=== PATIENT | female | born 1935 | race Caucasian/White ===

== ENCOUNTER 2023-02-13 15:46 | Outpatient (CLI) | payer MEDICARE, SELFPAY ==
--- OUTSIDE RECORDS SUMMARY | 2023-02-13 15:52 | XMS_ITS | Continuity of Care Document ---
Author Name Unknown Organization [facility] Address [address] [address] [place] [address] Phone Care Team Providers Care Media Monitor Name Role Phone Link Cisco WHEATLEY Unavailable Unavailable Allergies, Adverse Reactions, Alerts Substance Reaction Status Criticality trimethoprim Active No Information sulfamethoxazole Active No Informat ion codeine nausea / vomit / hives Active No In formation Medications Medication Instructions Dosage Effective Dates (start - stop) Status Comments losartan 25 mg tablet take 1 tablet by o ral route in the morning and 2 tablets in the evening - Active Norvasc 5 mg tablet take 1 tablet by ora l route every day 5 MG - Active carvedilol 25 mg tablet take 1 tablet by oral route 2 times every day with food 25 MG - Active Crestor 20 mg tablet take 1 tablet by or al route every day 20 MG - Active omeprazole 20 mg capsule,delayed release take 1 capsule (20MG) by oral route 2 times every day before a meal 20 MG - Active Procedures Procedure Date Offic/outpt E&m Estab Low-mod 9 Offic/outpt E&m Estab Mod-hi 2 19 Routine Serum Collection Hepatic Function Panel Colonoscopy Flex; W/remov Les- 17 Ugi Endo; W/bx 1/mx Level Iv-surg Path Gross/micro 17 Ugi Endo; W/endo Ultrasound Ex 14 Offic/outpt E&m Estab Mod-hi 2 11 [id number] Colonoscopy Flex; W/remov Les- 11 Level Iv-surg Path Gross/micro 11 Advance Directives Directive Yes / No Effective Date File Name No Information Encounters Encounter Description Practice Location Reason(s) For Visit Diagnoses Date Provider Providers Copied on Encounter Offic/outpt E&m Estab Low-mod [facility], [address] [address], [place], [id number], [place] tel:[phone] [facility] GI Symptoms or Concerns (chief complaint) RUQ painConstipation , unspecified constipation typeEssential (primary) hypertension 9 Link MD Peck. [address] [facility], [facility] [address], [facility] [place], [id number] , [place]. [phone] Referring Provider: Referral Self. [facility], [address] [address], [place], [address], [place] tel:[phone] [facility] RUQ pain 9 Link MD Peck. [address] [facility], [address], [facility] [place], [address] , [place]. tel:[phone] Offic/outpt E&m Estab Mod-hi 2 [facility], [address] [address], [place], [place], [address], [place] tel:[phone] [facility] GI Symptoms or Concerns (chief complaint) RUQ painConstipation , unspecified constipation typeEssential (primary) hypertension 9 Link MD Peck. [address] [facility], [address], [facility] [place], [id number] , [place]. [phone] Referring Provider: [place], [address] [place], [address]. tel:[phone] [facility], [address] [address], [place], [place], [address], [place] tel:[phone] [facility] Reflux esophagitisGastr itis determined by endoscopyHiatal herniaColorectal polyp detected on colonoscopyBenig n neoplasm of sigmoid colonChange in bowel habitGastro-esop hageal reflux disease with esophagitisGastr itis, unspecified, without bleeding Sep-0 7 Gina Delgado. [address] [facility], [address], [place], [place], [address] , [place]. tel: [phone] Referring Provider: Tammy RENNER M, [address] [place], [address]. [phone] [facility], [address] [address], [place], [place], [address], [place] tel:[phone] [facility] No Information 4 Ata Mann [address] [facility], [address], [place], [address] , [place]. tel: [phone] [facility], [address] [address], [place], [place], [address], [place] tel:[phone] [facility] No Information 4 Ata Mann [address] [facility], [address], [place], [place], [address] , [place]. tel: [phone] Offic/outpt E&m Estab Mod-hi 2 [facility], [address] [address], [place], [place], [address], [place] tel:[phone] [facility] colonoscopy follow up (chief complaint) Gastroesophageal RefluxConstipati on Unspecified Mar- 1 Wilberto Peck. [address] [facility], [address], [place], [place], [address] , [place]. tel: [phone] [facility], [address] [address], [place], [place], [address], [place] tel:[phone] [facility] Polyp-intes/rect /stom-unc BehPseudopolypos is Of ColonChange In Bowel HabitsPseudopoly posis Of ColonChange In Bowel Habits 1 Wilberto Peck. [address] [facility], [address], [place], [place], [address] , [place]. tel:[phone] Family History Family Member Type Diagnosis Age At Onset Sister Problem (finding) Alive and well First degree family history Problem (finding) No Family history of No history of Colon Polyps Son Problem (finding) Alive and well First degree family history Problem (finding) No history of Ulcerative Colitis Daughter Problem (finding) Alive and well First degree family history Problem (finding) No history of Crohn's Brother Problem (finding) First degree family history Problem (finding) No history of Cancer, colon Mother Problem (finding) Father Problem (finding) Payers Payer name Insurance type Covered alliance party ID Montserrat bledsoe(s) [employer] Medicare 16 [id number] Social History Type Description Quantity Date Captured Comments Alcohol Use Details Caffeine Use Details Unknown Tobacco Use Status Current non-smoker 19 Smoking Status Never smoker Non-Smoking Tobacco Use Details : No Details Available : No Details Available Sex Female Vital Signs Date / Time: Height Weight BMI Pulse Rate Blood Pressure Temperature Respiratory Rate Body Surface Area Head Circumference Head Circ. Percentile Wt./Jaya. Percentile BMI percentile Pulse Ox Inhaled Ox 9:44 AM 62.00 in 57.697 kg (127.20 lbs) 23.2 6 kg/m eter (2) 58 /min 180/81 mm[Hg] Chief Complaint And Reason For Visit From encounter dated '01/26/2019 10:00'. GI Symptoms or Concerns (chief complaint). Description: She presents today for followup of her right upper quadrant pain and constipation. At her last visit, there had been concern about possible bile duct dilation. We checked LFTs, which were completely normal. She then underwent a pancreatic protocol CT of the abdomen and pelvis, which showed no acute abnormality, and no biliary dilation. Her pancreas was normal. At her last visit, I had also recommended that she start taking MiraLax on a regular basis to help with her constipation.She states that she has had significant improvement in her right upper quadrant pain. She notes that this has nearly resolved. She does now have some right-sided chest pain. She feels that the right upper quadrant pain has moved to her right chest. She statesit is nearly constant, and definitely worse with eating at times. She denies any nausea, vomiting, decreased appetite, diarrhea, or blood in her stools. Her daughter notes that she eats only small amounts at a time, however, states that her weight is stable.With regards to her constipation, she hashad improvement with the MiraLax, however, notes that if she takes one full dose every day, she canhave loose stools and has had some episodes of incontinence. Reason For Referral Reason For Referral No Information Plan Of Treatment Date Type Action Status Referral Ordered: CT Abdomen And Pelvis WITH Contrast Appointment date/timeframe: 12/16/2018 ordered History Of Present Illness Encounter Date Complaint History Of Prese nt Illness GI Symptoms or Concerns She pres ents today for followup of her right upper quadrant pain and constipation. At her last visit, there had been concern about possible bile duct dilation. We checked LFTs, which were completely normal. She then underwent a pancreatic protocol CT of the abdomen and pelvis, which showed no acute abnormality, and no biliary dilation. Her pancreas was normal. At her last visit, I had also recommended that she start taking MiraLax on a regular basis to help with her constipation.She states that she has had significant improvement in her right upper quadrant pain. She notes that this has nearly resolved. She does now have some right-sided chest pain. She feels that the right upper quadrant pain has moved to her right chest. She states it is nearly constant, and definitely worse with eating at times. She denies any nausea, vomiting, decreased appetite, diarrhea, or blood in her stools. Her daughter notes that she eats only small amounts at a time, however, states that her w GI Symptoms or Concerns I was as ked to see Nehal by Dr. Samantha Willson for consultation of a dilated bile duct.Nehal reports a constant right upper quadrant pain. She states that this pain has been present for years. She notes that it is worse at night. It does not change with eating a meal, although sometimes it can be worse if she eats chocolate, or certain drinks such as Powerade. She has some nausea, which she feels is unrelated to the pain. She denies any vomiting. She does take omeprazole for acid reflux. Currently, she generally only has symptoms if she bends over, especially after eating a meal. She feels her appetite is normal, although her daughter feels that her appetite is poor. Her weight is stable. She has no history of jaundice. She does have some difficulty with constipation. She generally has a bowel movement 2 to 3 times per week. Currently, she takes MiraLax on an as-needed basis, generally 2 to 3 times per week. She denies any hard stools or straining to pass stools.I Functional Status Date Functional Assessmen t No Information Instructions Date Instruction Additional Infor sean Continue the miralax , I would decrease to 1/2 capful every day. OK to decrease to 1/2 capful every other day if needed. Related to Constipation, unspecified constipation type Continue omeprazole 20 mg twice per day for now. If you have questions or symptoms worsen, please call my office. We can consider changing to a different medication such as pantoprazole (Protonix). Related to RUQ pain Start Miralax one do se (17 grams) every day. Goal is to have a soft, formed bowel movement every day or every other day. If not at goal in 2 weeks, increase to one dose twice per day. Related to Constipation, unspecified constipation type Gastroesophageal Reflux Disease Related to Gastritis determined by endoscopy Gastritis Related to Gastr itis determined by endoscopy Colon Cancer Prevention Related to Gastritis determined by endoscopy Hiatal Hernia Related to Gastr itis determined by endoscopy Colon Polyps Related to Gastr itis determined by endoscopy Assessments Type Assessment Date assessment RUQ pain assessment Constipation, unspecified consti pation type assessment Essential (primary) hypertension impression This is a pleasant [age]-year-old with right upper quadrant pain and constipation. Both of these are chronic issues, and she does not have any warning symptoms.Regarding her right upper quadrant pain, she is very reassured that her liver tests and CT scan were normal. She does have a history of esophagitis and hiatal hernia, and we did discuss if she would benefit from changing to an alternative PPI. We had an extensive discussion, and also considered adding and changing to ranitidine. After this discussion, she would prefer to stay on the omeprazole as currently dosed.With regards to her constipation, I recommend that she try taking the MiraLax 1/2 dose per day. I explained that if she still has loose stools on this dosage, she can decrease to 1/2 dose every other day.I encouraged her to contact my office immediately if she has any other problems or questions, otherwise she can follow up with Dr. Willson.Thank you for allowing me to participate in the care of this patient. Please feel free to contact me should any questions arise. Patient Care Teams Name Effective Dates (start - stop) Status Members No Information
== END 2023-02-13 15:47 | disposition home or self-care (01) ==
PROVIDERS: PCP Family Medicine; Visit Provider Family Medicine
DX: Z00.00 Encounter for general adult medical examination without abnormal findings (principal); E04.1 Nontoxic single thyroid nodule; I10 Essential (primary) hypertension; E78.5 Hyperlipidemia, unspecified; E55.9 Vitamin D deficiency, unspecified; R53.83 Other fatigue
CPT/HCPCS: 80053; 80061; 82306; 84443

== ENCOUNTER 2023-04-09 09:00 | Outpatient (CLI) | payer MEDICARE, SELFPAY | END 2023-04-09 09:01 | disposition home or self-care (01) | LOC: NFLDREF 04-11 11:52 | PROVIDERS: PCP Family Medicine; Referring Provider Family Medicine; Visit Provider Family Medicine | DX: E78.5 Hyperlipidemia, unspecified (principal); I10 Essential (primary) hypertension | CPT/HCPCS: 80053; 80061 ==

== ENCOUNTER 2023-06-27 11:02 | Outpatient (CLI) | payer MEDICARE, SELFPAY ==
--- OUTSIDE RECORDS SUMMARY | 2023-06-28 11:20 | XMS_ITS | Continuity of Care Document ---
Author Name Unknown Organization [facility] Address [address] [address] [place] [address] Phone Care Team Providers Care Steel Pourer Helper Name Role Phone Link Cisco WHEATLEY Unavailable [...] Copied on Encounter Offic/outpt E&m Estab Low-mod [facility], [address] [address], [place], [place], [address], [place] tel:[phone] [facility] GI Symptoms or Concerns (chief complaint) RUQ painConstipation , unspecified constipation typeEssential (primary) hypertension 9 Link MD Peck. [address] [facility], [facility] [place], [place], [address] , [place]. [phone] Referring Provider: Referral Self, USE FOR SELF REFERRALS. [facility], [address] [address], [facility] [place], [address], [place] tel:[phone] [facility] RUQ pain 9 Link MD Peck. [address] [facility], [facility] [place], [place], [address] , [place]. tel:[phone] Offic/outpt E&m Estab Mod-hi 2 [facility], [address] [address], [place], [place], [address], [place] tel:[phone] [facility] GI Symptoms or Concerns (chief complaint) RUQ painConstipation , unspecified constipation typeEssential (primary) hypertension 9 Link MD Peck. [address] [facility], [address], [facility] [place], [address] , [place]. [phone] Ref[place]: [place], [address] [place], [address]. tel:[phone] [facility], [address] [address], [place], [place], [address], [place] tel:[phone] [facility] Reflux esophagitisGastr itis determined by endoscopyHiatal herniaColorectal polyp detected on colonoscopyBenig n neoplasm of sigmoid colonChange in bowel habitGastro-esop hageal reflux disease with esophagitisGastr itis, unspecified, without bleeding 7 Gina Delgado. [address] [facility], [address], [place], [place], [address] , [place]. tel: [phone] Referring Provider: Tammy RENNER M, [address] [place], [address]. tel:[phone] [facility], [address] [address], [place], [address], [place] tel:[phone] [facility] No Information 4 Ata Mann [address] [facility], [facility] [address], [place], [place], [address] , [place]. tel: [phone] [facility], [address] [address], [place], [place], [address], [place] tel:[phone] [facility] No Information 4 Ata Mann [address] [facility], [facility] [address], [place], [place], [address] , [place]. tel: [phone] Offic/outpt E&m Estab Mod-hi 2 [facility], [address] [address], [place], [place], [address], [place] tel:[phone] [facility] colonoscopy follow up (chief complaint) Gastroesophageal RefluxConstipati on Unspecified 1 Wilberto Peck. [address] [facility], [facility] [address], [place], [place], [address] , [place]. tel: [phone] [facility], [address] [address], [place], [address], [place] tel:[phone] [facility] Polyp-intes/rect /stom-unc BehPseudopolypos is Of ColonChange In Bowel HabitsPseudopoly posis Of ColonChange In Bowel Habits 1 Link MD Peck. [address] [facility], [facility] [address], [place], [place], [address] , . tel:[phone] Family History Family Member Type Diagnosis Age [...] (finding) Payers Payer name Insurance type Covered green party ID Montserrat bledsoe(s) [employer] Medicare 16 [id number] Social History Type Description Quantity Date Captured [...] Present Illness Encounter Date Complaint History Of Preslogan nt Illness GI Symptoms or Concerns She [...]
== END 2023-06-27 11:03 | disposition home or self-care (01) ==
LOC: NFLDREF 06-28 11:18
PROVIDERS: PCP Family Medicine; Referring Provider Family Medicine; Visit Provider Physician Assistant Medical
DX: R35.0 Frequency of micturition (principal); N39.0 Urinary tract infection, site not specified
CPT/HCPCS: 87086

== ENCOUNTER 2023-07-22 12:04 | Emergency (ER) | payer MEDICARE, SELFPAY ==
[2023-07-22] VITALS (21 sets, daily range): BP systolic 95–198; BP diastolic 42–102; PULSE 54–68; RESP 16; TEMP 35.9; O2SAT 93–98
--- NOTE | 2023-07-22 12:13 | CRLHL7_ITS ---
For Patients: As a result of the Century Cures Act, medical imaging exams and procedure reports are released immediately into your electronic medical record. You may view this report before your referring provider. If you have questions, please contact your health care provider. INDICATION: Acute stroke, left-sided weakness. TECHNIQUE: CTA neck with contrast bolus tracking, 3D angiographic rendering using maximum intensity projection (MIP) and images permanently archived. FINDINGS: There is carotid atherosclerosis. There is marked tortuosity and redundancy of the internal carotid arteries. There is no significant carotid artery stenosis or dissection. There is no significant vertebral artery stenosis or dissection. Small indeterminate thyroid nodules are incidentally noted. The soft tissues of the neck are otherwise within normal limits. Degenerative changes are noted in the cervical spine. IMPRESSION: No significant carotid or vertebral artery stenosis or dissection. Please note that all CT scans at this facility use dose modulation, iterative reconstruction, and/or weight-based dosing when appropriate to reduce radiation dose to as low as reasonably achievable. Dictated by Richard Colin MD @ 07/22/2023 1:49:39 PM (Electronically Signed)
--- NOTE | 2023-07-22 12:13 | CRLHL7_ITS ---
For Patients: As a result of the Century Cures Act, medical imaging exams and procedure reports are released immediately into your electronic medical record. You may view this report before your referring provider. If you have questions, please contact your health care provider. INDICATION: Acute stroke, left-sided weakness. TECHNIQUE: CT head without contrast. FINDINGS: There is no intracranial hemorrhage. The brown white matter differentiation is maintained. There are extensive nonspecific white matter hypodensities commonly seen with small vessel disease. The ventricles and cisterns are clear. IMPRESSION: No acute intracranial abnormality at noncontrast CT. Please note that all CT scans at this facility use dose modulation, iterative reconstruction, and/or weight-based dosing when appropriate to reduce radiation dose to as low as reasonably achievable. Dictated by Richard Colin MD @ 07/22/2023 1:35:43 PM (Electronically Signed)
--- NOTE | 2023-07-22 12:13 | CRLHL7_ITS ---
For Patients: As a result of the Century Cures Act, medical imaging exams and procedure reports are released immediately into your electronic medical record. You may view this report before your referring provider. If you have questions, please contact your health care provider. INDICATION: Acute stroke, left-sided weakness. TECHNIQUE: CTA head with contrast bolus tracking, 3D angiographic rendering using maximum intensity projection (MIP) and images permanently archived. FINDINGS: There is a 12 mm cavernous left ICA aneurysm. 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 There is otherwise normal opacification of the intracranial vasculature. There is no large vessel occlusion or significant intracranial stenosis. IMPRESSION: 1. No large vessel occlusion. 2. 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 We would be happy to manage the patient`s aneurysms at the [facility] neurointerventional clinic if desired. This can be arranged by calling our coordinator at [phone]. Discussed with Juan Fletcher at 1:45 p.m. on 07/22/23. Richard Colin MD Neurointerventional Radiology [facility] [employer] Please note that all CT scans at this facility use dose modulation, iterative reconstruction, and/or weight-based dosing when appropriate to reduce radiation dose to as low as reasonably achievable. Dictated by Richard Colin MD @ 07/22/2023 1:48:28 PM (Electronically Signed)
[2023-07-22 12:43] LABS: Creatinine, Point-of-Care* 0.8 mg/dl (0.6-1.3)
[2023-07-22 12:50] LABS: Basophils Absolute Auto 0.05 K/uL (0.00-0.30); Basophils Percent Auto 0.6 % (0.0-3.0); Eosinophils Absolute Auto 0.12 K/uL (0.00-0.50); Eosinophils Percent Auto 1.5 % (0.0-7.0); Hemoglobin* 15.2 gm/dL (12.0-16.0); Immature Granulocytes Abs Auto 0.01 K/uL (0.00-0.30); Immature Granulocytes Pct Auto 0.1 %; Lymphocytes Absolute Auto 2.05 K/uL (0.90-2.90); Lymphocytes Percent Auto 25.8 % (20-44); Mean Corpuscular HGB Conc 35 gm/dL (32-36); Mean Corpuscular Hemoglobin 33 pg (26-34); Mean Corpuscular Volume 94 fL (80-100); Monocytes Percent Auto 10.1 % (0.0-11.0); Neutrophils Absolute Auto 4.92 K/uL (1.7-7.0); Neutrophils Percent Auto 61.9 % (42.0-72.0); Platelet Count* 236 K/uL (140-440); RDW Coefficient of Variation % 12.2 % (11.5-15.5); Red Blood Count 4.67 m/uL (4.00-5.20); White Blood Count* 7.95 K/uL (4.50-11.00)
--- NOTE | 2023-07-22 12:50 | ED.NURSE ---
Patient to CT.
[2023-07-22 13:03] LABS: Creatinine, Point-of-Care* 0.8 mg/dl (0.6-1.3)
[2023-07-22 13:04] LABS: Albumin* 4.2 g/dL (3.3-5.0); Chloride* 102 mmol/L (96-114)
[2023-07-22 13:05] LABS: Potassium* 3.3 mmol/L (3.6-5.1); Sodium* 141 mmol/L (135-149)
[2023-07-22 13:06] LABS: Slide Review Reflex No
[2023-07-22 13:07] LABS: Anion Gap 6 mEq/L (7-15); Aspartate Amino Transferase* 26 U/L (12-35); Bilirubin Total* 0.8 mg/dL (0.1-1.5); Blood Urea Nitrogen* 26 mg/dL (7-30); Carbon Dioxide* 33 mmol/L (20-32); Creatinine* 0.7 mg/dL (0.5-1.5); Estimated Glomerular Filt Rate 84 ml/min; Total Protein* 7.3 g/dL (6.0-8.3)
[2023-07-22 13:08] LABS: Alanine Aminotransferase* 17 U/L (4-35); Alkaline Phosphatase* 66 U/L (40-150); Calcium* 10.1 mg/dL (8.4-10.6); Glucose* 110 mg/dL (60-115)
--- NOTE | 2023-07-22 13:11 | ED.NEUROSD ---
HPI - Neuro Symptoms/Deficit General Date Seen: 07/22/23 Chief Complaint: Neuro Symptoms/Altered Deficit Stated Complaint: Possible stroke--L side numb/heavy Time Seen by Provider: 07/22/23 12:09 Source: patient and family Mode of arrival: ambulatory Limitations: no limitations History of Present Illness HPI Narrative: Patient is an 87-year-old female with a previous stroke with no residual deficits, cerebral aneurysm presenting to the emergency department for dizziness and left-sided weakness. She is here with her daughter. They states symptoms have been going on for the past 5 days. They are concerned symptoms are not improving so finally brought drink today. She has never had symptoms like this before they concerned she could have suffered a stroke. Patient states she feels like she is falling to the left side at end of her left side of her body is weak. Symptoms are not any worse today compared to yesterday. Does not remember any injuries or falls. Family states she is otherwise mentating normally. Related Data Home Medications Medication Instructions Recorded Confirmed ascorbic acid (vitamin C) 500 mg mg PO 02/13/23 06/27/23 capsule cholecalciferol (vitamin D3) 25 25 mcg PO QDAY 02/13/23 07/22/23 mcg (1,000 unit) capsule Previous Rx's Medication Instructions Recorded estradiol 0.01% (0.1 mg/gram) 1 appful vaginal 2XW #42.5 grams 02/13/23 vaginal cream famotidine 20 mg tablet 20 mg PO QDAY #90 tabs 02/13/23 amlodipine 5 mg tablet 5 mg PO BID #180 tabs 04/15/23 carvedilol 25 mg tablet 25 mg PO BID #180 tabs 04/15/23 losartan 25 mg tablet 25 mg PO BID #180 tabs 04/15/23 rosuvastatin 20 mg tablet 20 mg PO QPM #90 tabs 04/15/23 nitrofurantoin macrocrystal 100 mg 100 mg PO BID #14 caps 06/27/23 capsule Allergies Allergy/AdvReac Type Severity Reaction Status Date / Time codeine Allergy Unknown Rash Verified 06/27/23 11:03 sulfamethoxazole Allergy Unknown Jaw Verified 06/27/23 11:03 [From Bactrim] Tightens trimethoprim [From Bactrim] Allergy Unknown Jaw Verified 06/27/23 11:03 Tightens 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) ?I70.1 - Atherosclerosis of renal artery (ICD-10) ?I77.3 - Arterial fibromuscular dysplasia (ICD-10) Frequent UTI ?N39.0 - Urinary tract infection, site not specified (ICD-10) GERD (gastroesophageal reflux disease) ?K21.9 - Gastro-esophageal reflux disease without esophagitis (ICD-10) Thyroid nodule (2014) ?E04.1 - Nontoxic single thyroid nodule (ICD-10) Hypertension ?I10 - Essential (primary) hypertension (ICD-10) Hyperlipidemia ?E78.5 - Hyperlipidemia, unspecified (ICD-10) Cerebral aneurysm, nonruptured (2014) ?I67.1 - Cerebral aneurysm, nonruptured (ICD-10) Bilateral carotid artery disease (~2013) ?I77.9 - Disorder of arteries and arterioles, unspecified (ICD-10) Surgical History (Updated 02/13/23 @ 17:19 by Lia Kenny MD) Normal endoscopic ultrasound of upper GI tract (08/26/13) ?Z01.89 - Encounter for other specified special examinations (ICD-10) History of bilateral cataract extraction ?Z98.41 - Cataract extraction status, right eye (ICD-10) ?Z98.42 - Cataract extraction status, left eye (ICD-10) History of hysterectomy (~1970) ?Z90.710 - Acquired absence of both cervix and uterus (ICD-10) History of spinal surgery (1997) ?Z98.890 - Other specified postprocedural states (ICD-10) Status post renal artery angioplasty (2002) ?Z98.62 - Peripheral vascular angioplasty status (ICD-10) Family History (Updated 02/13/23 @ 17:20 by Lia Kenny MD) Mother Diabetes, Onset Age: 65 Coronary artery disease Brother No problems noted. Sister Diabetes Son Cerebrovascular disease Social History (Updated 04/16/23 @ 14:00 by Vandana Power ~ CTA) Narrative: , lives alone, 2 adult children Lifetime nonsmoker Rarely consumes alcohol Physical activity daily gardening housecleaning walking Call all lab results to daughter Kenya What is your current living situation?: I presently have a place to live Problems where you live: no known problems In the past 12 months, utilities in danger of being shut off: no In past 12 months, lack of transportation kept you from medical appts, meetings, work, or getting things needed for daily living: no In the past 12 mos, have been you worried that your food would run out before you had money to buy more?: never true In the past 12 mos, the food you bought just didn't last and you didn't have money to buy more?: never true Non-prescribed substance use: denies use How often does anyone, including family, friends and others, physically hurt you: never How often does anyone, including family, friends and others, insult or talk down to you: rarely How often does anyone, including family, friends and others, threaten you with harm: never How often does anyone, including family, friends and others, scream or curse at you: never Little interest or pleasure in doing things: not at all Feeling down, depressed, or hopeless: not at all Exam Const: Vital Signs, click to edit/add: Vital Signs - 24 hr 07/22/23 12:09 07/22/23 12:45 07/22/23 13:08 Temperature 96.6 F L Pulse Rate 55 L 63 Pulse Rate [Pulse Oximeter] 54 L Respiratory Rate 16 Blood Pressure Blood Pressure [Le ft Upper Arm] 196/94 H Pulse Oximetry 97 97 98 [facility] 07/22/23 13:15 07/22/23 13:23 07/22/23 13:30 Temperature Pulse Rate 61 65 64 Pulse Rate [Pulse Oximeter] Respiratory Rate Blood Pressure 198/101 H Blood Pressure [Le ft Upper Arm] Pulse Oximetry 97 98 97 [facility] 07/22/23 13:45 07/22/23 14:00 07/22/23 14:15 Temperature Pulse Rate 63 64 63 Pulse Rate [Pulse Oximeter] Respiratory Rate Blood Pressure Blood Pressure [Le ft Upper Arm] Pulse Oximetry 95 97 97 [facility] 07/22/23 14:30 07/22/23 15:00 07/22/23 15:01 Temperature Pulse Rate 65 66 66 Pulse Rate [Pulse Oximeter] Respiratory Rate Blood Pressure 194/102 H Blood Pressure [Le ft Upper Arm] Pulse Oximetry 93 97 94 Oxygen Delivery Me thod 07/22/23 15:15 07/22/23 15:30 07/22/23 15:45 Temperature Pulse Rate 63 63 63 Pulse Rate [Pulse Oximeter] Respiratory Rate Blood Pressure Blood Pressure [Le ft Upper Arm] Pulse Oximetry 96 97 96 Oxygen Delivery Me thod 07/22/23 16:00 07/22/23 16:15 07/22/23 16:30 Temperature Pulse Rate 61 62 62 Pulse Rate [Pulse Oximeter] Respiratory Rate Blood Pressure Blood Pressure [Le ft Upper Arm] Pulse Oximetry 96 96 96 Oxygen Delivery Me thod 07/22/23 16:45 07/22/23 16:47 07/22/23 17:03 Temperature Pulse Rate 68 65 Pulse Rate [Pulse Oximeter] Respiratory Rate Blood Pressure 190/102 H 95/42 L Blood Pressure [Le ft Upper Arm] Pulse Oximetry 97 96 Oxygen Delivery Me thod Course Vital Signs Vital signs: Initial Vital Signs Temperature 96.6 F L 07/22/23 12:09 Temperature Source Temporal Artery Scan 07/22/23 12:09 Pulse Rate 54 L 07/22/23 12:09 Respiratory Rate 16 07/22/23 12:09 Blood Pressure 196/94 H 07/22/23 12:09 Blood Pressure Mean 128 H 07/22/23 12:09 Blood Pressure Position Supine 07/22/23 12:09 Pulse Oximetry 97 07/22/23 12:09 Oxygen Delivery Method Room Air 07/22/23 12:09 Vital Signs Temperature 96.6 F L 07/22/23 12:09 Pulse Rate 54 L 07/22/23 12:09 Respiratory Rate 16 07/22/23 12:09 Blood Pressure 196/94 H 07/22/23 12:09 Pulse Oximetry 97 07/22/23 12:09 Oxygen Delivery Method Room Air 07/22/23 12:09 Temperature 96.6 F L 07/22/23 12:09 Pulse Rate 65 07/22/23 16:47 Respiratory Rate 16 07/22/23 12:09 Blood Pressure 95/42 L 07/22/23 17:03 Pulse Oximetry 96 07/22/23 16:47 Oxygen Delivery Method Room Air 07/22/23 12:09 Medications Administered Medications: Discontinued Medications Generic Name Dose Route Start Last Admin Trade Name Freq PRN Reason Stop Dose Admin Amlodipine Besylate 5 mg 07/22/23 15:54 07/22/23 16:56 Amlodipine 5 Mg Tablet PO 07/22/23 15:55 5 mg ONCE ONE Administration Aspirin 324 mg 07/22/23 14:18 07/22/23 16:56 Aspirin 81 Mg Tab.Chew PO 07/22/23 14:19 324 mg ONCE ONE Administration Losartan Potassium 25 mg 07/22/23 15:54 07/22/23 16:56 Losartan Potassium 50 Mg Tablet PO 07/22/23 15:55 25 mg ONCE ONE Administration Meclizine HCl 25 mg 07/22/23 16:09 07/22/23 16:56 Meclizine Hcl 25 Mg Tablet PO 07/22/23 16:10 25 mg ONCE ONE Administration MDM - Neuro Symptoms/Deficit MDM Narrative Medical decision making narrative: Patient is an 87-year-old female presenting to emergency department for left-sided weakness. She keeps stating she feels like something is her head is pulling her to the left side. She is not ambulatory as previously. NIH stroke scale is 0. Symptoms have been going on for several days and a code stroke is not necessary at this time. Will do a CT head and CTA head and neck. Point of care creatinine was ordered to be done after wait for the CMP to return to get these tests done. Also order urinalysis, COVID/flu/RSV, troponin, EKG, CBC peer Head imaging returned showing no concerning abnormalities. I did speak to Neurointerventional Radiology about the patient's aneurysms and I was informed to have her follow up with them outpatient. This information was given to her and her daughter. I spoke to [facility] and was recommended to do an MRI. This MRI was done insert no new concerning abnormalities. Patient is still symptomatic. I spoke to Neurology again a recommended admission since we do not know what is causing the symptoms. Patient and family do not want to be admitted . Would be rather go home. I spoke to them about admission versus discharge him the risks and they still state they would rather go home. CBC and CMP showed no concerning findings troponin within normal limits EKG showed no concerning findings. She is hypertensive I gave her her home hypertension medications. Her symptoms do not sound like vertigo at this point I do not know what else is causing her symptoms so meclizine was given. They did not want await for the meclizine to fully kick in and wants to be discharged. This is fine considering the patient refused to stay anyway so the patient was discharged. Lab Data Labs: Lab Results 07/22/23 07/22/23 07/22/23 Range/Units 12:13 12:35 12:35 WBC 7.95 (4.50-11.00) K/uL RBC 4.67 (4.00-5.20) m/uL Hgb 15.2 (12.0-16.0) gm/dL Hct 44.0 (33.0-51.0) % MCV 94 (80-100) fL MCH 33 (26-34) pg MCHC 35 (32-36) gm/dL RDW Coeff of Natalie 12.2 (11.5-15.5) % Plt Count 236 (140-440) K/uL Neut % (Auto) 61.9 (42.0-72.0) % Lymph % (Auto) 25.8 (20-44) % [place] % (Auto) 10.1 (0.0-11.0) % Eos % (Auto) 1.5 (0.0-7.0) % Baso % (Auto) 0.6 (0.0-3.0) % Neut # (Auto) 4.92 (1.7-7.0) K/uL Lymph # (Auto) 2.05 (0.90-2.90) K/uL [place] # (Auto) 0.80 (0.00-0.90) K/UL Eos # (Auto) 0.12 (0.00-0.50) K/uL Baso # (Auto) 0.05 (0.00-0.30) K/uL Abs Immat Gran (auto) 0.01 (0.00-0.30) K/uL Imm/Tot Granulo (auto) 0.1 % Sodium 141 (135-149) mmol/L Potassium 3.3 L (3.6-5.1) mmol/L Chloride 102 (96-114) mmol/L Carbon Dioxide 33 H (20-32) mmol/L Anion Gap 6 L (7-15) mEq/L BUN 26 (7-30) mg/dL Creatinine 0.7 (0.5-1.5) mg/dL Estimated GFR 84 ml/min Glucose 110 (60-115) mg/dL Calcium 10.1 (8.4-10.6) mg/dL Total Bilirubin 0.8 (0.1-1.5) mg/dL AST 26 (12-35) U/L ALT 17 (4-35) U/L Alkaline Phosphatase 66 (40-150) U/L Troponin I < 0.01 L (0.01-0.04) ng/mL Total Protein 7.3 (6.0-8.3) g/dL Albumin 4.2 (3.3-5.0) g/dL Urine Color (Yellow) Urine Appearance (Clear) Urine pH (5.0-8.5) Ur Specific [place] (1.000-1.030) Urine Protein (Negative) Urine Glucose (UA) (Negative) Urine Ketones (Negative) Urine Blood (Negative) Urine Nitrite (Negative) Urine Bilirubin (Negative) Urine Urobilinogen (0.2-1.0) Ur Leukocyte Esterase (Negative) Urine RBC (0-2) Urine WBC (0-5) Ur Squamous Epith Cells (None-Few) Urine Bacteria (None) SARS-CoV-2 (PCR) Negative SARS-CoV-2 (Negative) Influenza Type A (PCR) Negative PCR FLU A (Negative) Influenza Type B (PCR) Negative PCR FLU B (Negative) RSV (PCR) Negative PCR RSV (Negative) POC Creatinine 0.8 0.8 (0.6-1.3) mg/dl 07/22/23 Range/Units 15:38 WBC (4.50-11.00) K/uL RBC (4.00-5.20) m/uL Hgb (12.0-16.0) gm/dL Hct (33.0-51.0) % MCV (80-100) fL MCH (26-34) pg MCHC (32-36) gm/dL RDW Coeff of Natalie (11.5-15.5) % Plt Count (140-440) K/uL Neut % (Auto) (42.0-72.0) % Lymph % (Auto) (20-44) % [place] % (Auto) (0.0-11.0) % Eos % (Auto) (0.0-7.0) % Baso % (Auto) (0.0-3.0) % Neut # (Auto) (1.7-7.0) K/uL Lymph # (Auto) (0.90-2.90) K/uL [place] # (Auto) (0.00-0.90) K/UL Eos # (Auto) (0.00-0.50) K/uL Baso # (Auto) (0.00-0.30) K/uL Abs Immat Gran (auto) (0.00-0.30) K/uL Imm/Tot Granulo (auto) % Sodium (135-149) mmol/L Potassium (3.6-5.1) mmol/L Chloride (96-114) mmol/L Carbon Dioxide (20-32) mmol/L Anion Gap (7-15) mEq/L BUN (7-30) mg/dL Creatinine (0.5-1.5) mg/dL Estimated GFR ml/min Glucose (60-115) mg/dL Calcium (8.4-10.6) mg/dL Total Bilirubin (0.1-1.5) mg/dL AST (12-35) U/L ALT (4-35) U/L Alkaline Phosphatase (40-150) U/L Troponin I (0.01-0.04) ng/mL Total Protein (6.0-8.3) g/dL Albumin (3.3-5.0) g/dL Urine Color Yellow (Yellow) Urine Appearance Clear (Clear) Urine pH 7.5 (5.0-8.5) Ur Specific [place] 1.015 (1.000-1.030) Urine Protein Negative (Negative) Urine Glucose (UA) Negative (Negative) Urine Ketones Negative (Negative) Urine Blood Negative (Negative) Urine Nitrite Negative (Negative) Urine Bilirubin Negative (Negative) Urine Urobilinogen 0.2 (0.2-1.0) Ur Leukocyte Esterase Negative (Negative) Urine RBC 0-2 (0-2) Urine WBC 0-2 (0-5) Ur Squamous Epith Cells Few (None-Few) Urine Bacteria None (None) SARS-CoV-2 (PCR) (Negative) Influenza Type A (PCR) (Negative) Influenza Type B (PCR) (Negative) RSV (PCR) (Negative) POC Creatinine (0.6-1.3) mg/dl Imaging Data CT scan head: Radiologist's impression: No acute intracranial abnormality at noncontrast CT. Please note that all CT scans at this facility use dose modulation, iterative reconstruction, and/or weight-based dosing when appropriate to reduce radiation dose to as low as reasonably achievable. Dictated by Richard Colin MD @ 07/22/2023 1:35:43 PM CTA head and neck: Radiologist's impression: 1. No large vessel occlusion. 2. 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 We would be happy to manage the patient`s aneurysms at the [facility] neurointerventional clinic if desired. This can be arranged by calling our coordinator at [phone]. Discussed with Juan Fletcher at 1:45 p.m. on 07/22/23. Richard Colin MD Neurointerventional Radiology [facility] Please note that all CT scans at this facility use dose modulation, iterative reconstruction, and/or weight-based dosing when appropriate to reduce radiation dose to as low as reasonably achievable. Dictated by Richard Colin MD @ 07/22/2023 1:48:28 PM No significant carotid or vertebral artery stenosis or dissection. Please note that all CT scans at this facility use dose modulation, iterative reconstruction, and/or weight-based dosing when appropriate to reduce radiation dose to as low as reasonably achievable. Dictated by Richard Colin MD @ 07/22/2023 1:49:39 PM MRI brain: Radiologist's impression: 1. No evidence of acute intracranial abnormality. 2. Mild generalized cerebral volume loss, moderately advanced chronic microangiopathy changes, and scattered chronic lacunar infarcts as detailed. 3. Re-demonstration of the large left cavernous ICA saccular aneurysm. The previously described smaller ACOM aneurysm is better seen on CTA. Dictated by Gina Ford MD @ 07/22/2023 3:14:36 PM (Electronically Signed) ECG Data Attestation: I personally reviewed and interpreted this ECG as follows: Prior ECG tracings: not available for review Interpretation: Sinus bradycardia with a rate 55 beats per minute, normal intervals, normal axis, no ST or T-wave abnormalities Discharge Plan Discharge Clinical Impression: Dizziness Patient Disposition: Home w/ Parent or Adult Condition: Unchanged Instructions: Dizziness (ED) Additional Instructions: I am not sure what is causing symptoms of this. Is recommended you follow-up with Neuro Interventional for her aneurysms. Call to schedule an appointment Also recommend she follow up with [facility]. Call to schedule an appointment. Return to emergency department for new or worsening symptoms Prescriptions: No Action rosuvastatin 20 mg tablet 20 mg PO QPM Qty: 90 4RF losartan 25 mg tablet 25 mg PO BID Qty: 180 3RF carvedilol 25 mg tablet 25 mg PO BID Qty: 180 4RF amlodipine 5 mg tablet 5 mg PO BID Qty: 180 3RF cholecalciferol (vitamin D3) 25 mcg (1,000 unit) capsule 25 mcg PO QDAY ascorbic acid (vitamin C) 500 mg capsule PO estradiol 0.01 % (0.1 mg/gram) cream 1 appful vaginal 2XW Qty: 42.5 4RF famotidine 20 mg tablet 20 mg PO QDAY Qty: 90 4RF nitrofurantoin macrocrystal 100 mg capsule 100 mg PO BID Qty: 14 0RF Rx Instructions: must administer with a meal/food Follow Up/Referrals: Lia Kenny MD [Primary Care Provider] - Stand Alone Forms: [employer] Info Instructions
[2023-07-22 13:12] LABS: PCR FLU A Negative PCR FLU A (Negative); PCR FLU B Negative PCR FLU B (Negative); PCR RSV Negative PCR RSV (Negative)
[2023-07-22 13:15] LABS: SARS PCR* Negative SARS-CoV-2 (Negative)
[2023-07-22 13:21] LABS: Troponin I* < 0.01 ng/mL (0.01-0.04)
--- NOTE | 2023-07-22 14:16 | CRLHL7_ITS ---
For Patients: As a result of the Century Cures Act, medical imaging exams and procedure reports are released immediately into your electronic medical record. You may view this report before your referring provider. If you have questions, please contact your health care provider. Indication: Vision changes, left-sided weakness, dizziness Technique: Multiplanar, multisequence MRI of the brain obtained without contrast. Comparison: CTA Head/neck from same day Findings: The ventricles and cortical sulci are mildly prominent, compatible with generalized cerebral volume loss. No hydrocephalus or herniation. No acute/subacute ischemia, intracranial hemorrhage or abnormal extra-axial fluid collection. Focal and confluent areas of FLAIR hyperintensity are present throughout the supratentorial white matter, typical of chronic microangiopathy. Chronic lacunar infarcts are noted at the bilateral basal ganglia, right thalamus, right paramedian veda, and left cerebellar hemisphere. Re-demonstration of large left cavernous ICA saccular aneurysm. The reported smaller anterior communicating artery aneurysm is better visualized on CTA. Midline structures are otherwise unremarkable. Bone marrow signal is unremarkable. No suspicious findings in the regional soft tissues. Ethmoid air cell mucosal thickening. No mastoid effusion. Right lens implant. Impression: 1. No evidence of acute intracranial abnormality. 2. Mild generalized cerebral volume loss, moderately advanced chronic microangiopathy changes, and scattered chronic lacunar infarcts as detailed. 3. Re-demonstration of the large left cavernous ICA saccular aneurysm. The previously described smaller ACOM aneurysm is better seen on CTA. Dictated by Gina Ford MD @ 07/22/2023 3:14:36 PM (Electronically Signed)
[2023-07-22 15:59] LABS: Appearance Urine Clear (Clear); Bilirubin Urine Negative (Negative); Blood Urine Negative (Negative); Color Urine Yellow (Yellow); Glucose Urine Negative (Negative); Ketones Urine Negative (Negative); Leukocyte Esterase Urine Negative (Negative); Nitrite Urine Negative (Negative); Protein Urine Negative (Negative); Specific Gravity Urine 1.015 (1.000-1.030); Urobilinogen Urine 0.2 (0.2-1.0); pH Urine 7.5 (5.0-8.5)
[2023-07-22 16:15] LABS: RBC Urine 0-2 (0-2); Squamous Epithelial Cell Urine Few (None-Few); WBC Urine 0-2 (0-5)
[2023-07-22] MEDS: AMLODIPINE 5 MG TABLET PO (16:56)
[2023-07-22] MEDS: LOSARTAN POTASSIUM 50 MG TABLET 25 MG PO (16:56)
[2023-07-22] MEDS: ASPIRIN 81 MG TAB.CHEW 324 MG PO (16:56)
[2023-07-22] MEDS: MECLIZINE HCL 25 MG TABLET PO (16:56)
== END 2023-07-22 17:31 | disposition home or self-care (01) ==
PROVIDERS: Emergency Provider Student in an Organized Health Care Education/Training Program; PCP Family Medicine
DX: R42 Dizziness and giddiness (principal)
CPT/HCPCS: 36415; 70450; 70496; 70498; 70551; 80053; 81001; 82565; 84484; 85025; 87631; 93005; 99283; 99284; 99285; A9270; Q9967

== ENCOUNTER 2023-09-11 13:29 | Outpatient (CLI) | payer MEDICARE, SELFPAY | END 2023-09-11 13:30 | disposition home or self-care (01) | LOC: NFLDREF 09-24 10:48 | PROVIDERS: PCP Family Medicine; Referring Provider Family Medicine; Visit Provider Nurse Practitioner Family | DX: N39.0 Urinary tract infection, site not specified (principal) | CPT/HCPCS: 87086; 87186 ==

== ENCOUNTER 2023-12-31 12:33 | Outpatient (CLI) | payer MEDICARE, SELFPAY | END 2023-12-31 12:34 | disposition home or self-care (01) | LOC: NFLDREF 01-04 16:17 | PROVIDERS: PCP Family Medicine; Referring Provider Family Medicine; Visit Provider Family Medicine | DX: N39.0 Urinary tract infection, site not specified (principal); I10 Essential (primary) hypertension | CPT/HCPCS: 87086; 87186 ==

== ENCOUNTER 2024-01-21 09:58 | Outpatient (CLI) | payer MEDICARE, SELFPAY ==
--- OUTSIDE RECORDS SUMMARY | 2024-01-23 05:55 | XMS_ITS | Clinical Summary ---
Author Organization [facility] Address [address] [place] [address] Care Team Providers Care Calculus Teacher Name Role Phone Samantha Willson MD Primary Care Provider [phone] Source Comments You are receiving this document as you are listed as the primary care provider,follow-up provider, or the patient has been referred to you for consultation.This is in compliance with the Medicare andMedicaid EHR Incentive Program,which states Providers who transition their patient to another setting of careor provider of care or refers their patient to another provider of care shouldprovide summary care record for each transition of care or referral. [employer] Allergies Active Allergy Reactions Criticality Noted Date Comments Ciprofloxacin 06/20/2017 Other reaction(s): Arthralgia Jaw pain Codeine Rash 01/27/2015 Sulfamethoxazole-Trimethoprim 2014 Bactrim - jaw pain Medications Medication Sig Dispensed Refills Start Date End Date Status aspirin EC 81 MG enteric coated tablet Take 1 tablet by mouth daily (every 24 hours). 100 tablet 3 01/27/2015 Active ibuprofen (AKA MOTRIN) 800 MG tabletIndications:LORENZO NEGRO FriFeb 22, 2015 8:40 AM Received from: [facility] Take 800 mg by mouth. prn 05/18/2014 Active estradiol (ESTRACE) 0.1 MG/GM vaginal cream Apply 3x/week 01/01/2018 Active hydrocortisone (PROCTOSOL-HC) 2.5 % rectal cream Apply topically. 01/23/2017 Active cholecalciferol (VITAMIN D-[address]) 1000 units tablet Take 2,000 Units by mouth. 07/01/2012 Active omeprazole (PRILOSEC) 20 MG capsule Take 1 Capsule by mouth daily. 90 Capsule 3 04/18/2020 Active carvedilol (COREG) 25 MG tablet Take 1 Tablet by mouth two times a day with meals. 180 Tablet 3 05/24/2021 Active losartan (COZAAR) 25 MG tablet Take 1 Tablet by mouth two times a day. Taking 25 BID 180 Tablet 3 05/24/2021 Active amLODIPine (NORVASC) 5 MG tablet Take 2 Tablets by mouth daily. 180 Tablet 3 05/24/2021 Active rosuvastatin (CRESTOR) 20 MG tablet Take 1 Tablet by mouth daily at bedtime. 90 Tablet 3 05/24/2021 Active cloNIDine (CATAPRES) 0.1 MG tablet Take as needed for blood pressure >160/90 once a day 30 Tablet 3 05/24/2021 Active Active Problems Problem Noted Date Diagnosed Date Cerebrovascular accident 05/26/2018 Other fatigue 05/26/2018 Essential (primary) hypertension 01/27/2015 Renal artery stenosis 01/27/2015 Dyslipidemia 01/27/2015 Hypokalemia 01/27/2015 Edema 01/27/2015 PVC's (premature ventricular contractions) 01/27 Resolved Problems Problem Noted Date Diagnosed Date Resolved Date Bilateral carotid artery disease 01/27/2015 05/01/2018 Coronary artery disease invo lving [place] coronary artery without angina pectoris 01/27/2015 05/01/2018 Social History Tobacco Use Types Packs/Day Years Used Date Smoking Tobacco: Never Smokeless Tobacco: Never Alcohol Use Standard Drinks/Week Comments Yes 0 (1 standard drink = 0.6 oz pur e alcohol) Sex and Gender Information Value Date Recorded Sex Assigned at Not on file Gender Identity Not on file Sexual Orientation Not on file Last Filed Vital Signs Vital Sign Reading Time Taken Comments Blood Pressure 185/86 05/24/2021 11:25 AM CDT Pulse 58 05/24/2021 11:25 AM CDT Temperature - - Respiratory Rate - - Oxygen Saturation - - Inhaled Oxygen Concentration - - Weight 59 kg (130 lb) 05/24/2021 10:58 AM CDT Height 154.9 cm (5' 1) 05/24/2021 10:58 AM CDT Body Mass Index 24.56 05/24/2021 10:58 AM CDT Plan of Treatment Health Maintenance Due Date Last Done Comments Zoster/Shingles (1 of 2) 10/22/1985 DTaP/Tdap/Td (1 - Tdap) 06/21/1997 06/20/1997 Dexa 10/22/2000 Pneumococcal 65+ Yrs (2 - PCV) 10/22/2000 05/30/1998 COVID-19 Vaccine (1 - 2022- season) 2023 Medicare Annual Wellness Visit 07/21/2023 Influenza (Season Ended) 2024 012, 05/29/2010, 05/11/2008, Additional history exists HepA Aged Out No longer eligi ble based on patient's age to complete this topic HepB Aged Out No longer eligi ble based on patient's age to complete this topic Hib Aged Out No longer eligi ble based on patient's age to complete this topic IPV ([place]) Aged Out No longer eligi ble based on patient's age to complete this topic MCV4 Aged Out No longer eligi ble based on patient's age to complete this topic Care Teams Calculus Teacher Relationship Specialty Start Date End Date Samantha Willson MD [address] [id number] PCP - General Family Practice 05/26/18
--- OUTSIDE RECORDS SUMMARY | 2024-01-23 05:55 | XMS_ITS | Clinical Summary ---
Author Organization [facility] Address [place], [place] [address] Care Team Providers Care Adaptive Physical Educator Name Role Phone Samantha Willson Primary Care Provider Allergies Active Allergy Reactions Criticality Noted Date Comments Sulfamethoxazole-Trimethoprim *Unknown 2014 Ciprofloxacin Arthralgia 06/20/2017 Jaw pain Codeine Rash 10/02/2009 Medications Medication Sig Dispensed Refills Start Date End Date Status cholecalciferol (VITAMIN D) 1,000 unit tablet Take 2 tablets by mouth once daily. 0 07/01/2012 Active rizatriptan (MAXALT) 10 mg tablet Take 1 tablet by mouth every 2 hours if needed for Migraine. Max dose: 30mg per 24 hrs. 9 tablet 1 08/16/2013 Active rosuvastatin (CRESTOR) 20 mg tablet Take 1 tablet by mouth at bedtime. Due for follow up in July tablet 3 12/30/2013 Active albuterol HFA (PRO-AIR,VENTOLIN,PRO VENTIL) 90 mcg/actuation inhalerIndications:Ac [place] bronchitis Inhale 2 Puffs by mouth 4 times daily if needed. 1 Inhaler 0 08/23/2014 Active fluticasone (50 mcg per actuation) nasal solution (FLONASE)Indications: Vasomotor rhinitis Inhale 1 Grant into both nostrils once daily. 1 Bottle 0 12/02/2014 Active spironolactone (ALDACTONE) 25 mg tablet 11 11/17/2015 Active carvedilol (COREG) 25 mg tablet 7 11/17/2015 Active hydrocortisone (ANUSOL-HC) 2.5 % rectal creamIndications:Anal irritation Apply topically to affected area(s) 2 times daily. As needed 28.35 g 01/23/2017 Active ibuprofen (ADVIL; MOTRIN) 800 mg tabletIndications:Ost eoarthritis, unspecified osteoarthritis type, unspecified site Take 1 tablet by mouth 3 times daily with meals. 100 tablet 1 03/04/2017 Active omeprazole (PRILOSEC) 20 mg Delayed-Release capsuleIndications:Ch ronic GERD Take 1 capsule by mouth 2 times daily before meals. 180 capsule 3 03/04/2017 Active aspirin (ECOTRIN) 81 mg enteric coated tablet Take 1 tablet by mouth once daily with a meal. 0 12/29/2017 Active metroNIDAZOLE 0.75 % cream Apply topically to affected area(s) 2 times daily. 45 g 12/29/2017 Active diclofenac 1 % topical (VOLTAREN) gel Apply topically to affected area(s) 4 times daily. 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 HTN (hypertension) Hyperlipidemia Menopause praecox DJD (degenerative joint disease) GERD (gastroesophageal reflux disease) Immunizations Name Administration Dates Next Due Influenza, IIV3 (Age >=3 years) 07/01/20 12,05/29/2010,05/11/2008,2002,05/15/1999,05/30/1998 Pneumococcal Poly,23-Valent (Pneumovax) 05/30/1998 Td (Age >=7 Years) 06/20/1997 Family History Medical History Relation Name Comments Cancer-prostate Maternal Aunt Diabetes Mother Relation Name Status Comments Maternal Aunt Mother Social History Tobacco Use Types Packs/Day Years Used Date Smoking Tobacco: Never Smokeless Tobacco: Never Tobacco Cessation:Counseling Given: No Alcohol Use Standard Drinks/Week Comments Yes 0 (1 standard drink = 0.6 oz pur e alcohol) special occations Social Connections Answer Date Recorded Frequency of Communication with Friends and Fami ly Not on file 07/23/2023 Sex and Gender Information Value Date Recorded Sex Assigned at Not on file Gender Identity Not on file Sexual Orientation Not on file Obstetrics History Last Filed Vital Signs Vital Sign Reading Time Taken Comments Blood Pressure 150/68 12/29/2017 11:39 AM CDT Pulse 64 12/29/2017 11:36 AM CDT Temperature 36.5 ??C (97.7 ??F) 03/04/2017 1:06 PM CD T Respiratory Rate 16 08/24/2013 10:37 AM SYSTEMS PROTECTION TECHNICIAN Oxygen Saturation 96% 08/23/2014 9:53 AM SYSTEMS PROTECTION TECHNICIAN Inhaled Oxygen Concentration - - Weight 58.7 kg (129 lb 6.4 oz) 12/29/2017 11:36 AM CDT Height 154.9 cm (5' 1) 12/29/2017 11:36 AM CDT Body Mass Index 24.45 12/29/2017 11:36 AM CDT Plan of Treatment Health Maintenance Due Date Last Done Comments Zoster (shingles) series for age 50+ (1 of 2) 10/22/1985 Pneumococcal series for age 65+ (2 of 2 - PCV) 10/22/2000 05/30/1998 Depression screening for age 12+ 09/16/2017 09/16/19 17, 11/20/2015 BMI (ht and wt on same day) for age 18+ 12/29/2018 12/29/2017, 06/20/2017, 01/23/2017, Additional history exists Tetanus booster 12/25/2020 12/25/2010 (Decl ined), 05/29/2010 (Declined), 06/20/1997 COVID-19 vaccine series ( season) 2023 Influenza for age 65+ 03/21/2024 07/01/2012 , 05/29/2010, 05/11/2008, Additional history exists DEXA/DXA scan for age 65+ Completed 11/15/2005 Tdap Completed 12/30/2013 (Comp leted outside of [facility]) Procedures Procedure Name Priority Date/Time Associated Diagnosis Comments SCAN-BONE DENSITOMETRY DEXA 11/15/2005 12:00 AM CDT from Last 3 Months or Most Recently Relevant to Health Maintenance Results * SCAN-BONE DENSITOMETRY DEXA (11/15/2005 12:00 AM CDT) Anatomical Region Laterality Modality Other Narrative Procedure Note Scanner - 11/15/2005 12:00 AM CDT Scanner OTHER from Last 3 Months or Most Recently Relevant to Health Maintenance Care Teams Adaptive Physical Educator Relationship Specialty Start Date End Date Samantha Willson PCP - General Family Practice 05/14/18
--- OUTSIDE RECORDS SUMMARY | 2024-01-23 05:56 | XMS_ITS | Encounter Summary ---
Author Organization [facility] Address [facility] [place] [address] Care Team Providers Care Shuttle Bus Driver Name Role Phone Basim Rich MD Primary Care Provider [phone] Basim Luo MD Primary Care Provider Un available Shanique Yeh MD Primary Care Provider [phone] Samantha Willson MD Unavailable Unavailable Samantha Willson MD Primary Care Provider Unavailab Samantha Dueñas MD Unavailable Unavailable Michelle Rocha PA-C Unavailable [phone] Samantha Willson MD Unavailable Unavailable Jett Choi DO Unavailable + [phone] Rosa Lino MD Primary Care Provider [phone] Rosa Lino MD Unavailable [phone] Encounter Details Date Type Department Care Team (Late st Contact Info) Description 05/11/2004 Office Visit-[facility] [address] [place] [phone] Unknown, MD Lucila Social History Tobacco Use Types Packs/Day Years Used Date Smoking Tobacco: Never Assessed Sex and Gender Information Value Date Recorded Sex Assigned at Not on file Gender Identity Not on file Sexual Orientation Not on file documented as of this encounter Progress Notes * Unknown, MD Lucila - 05/16/2004 12:52 PM CDT Progress Note Created by: Shanique Yeh M.D. DATE: 05/11/2004 MICAELA STEELE DATE OF : 1935 AGE: [age] years old Referring Physician: ZE NGO Referring Clinic: [facility] CURRENT DIAGNOSES 1. 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 - Hyperlipidemia, 272.4 ALLERGIES Codeine, Hives MEDICATIONS (including any changes made today) 1. Labetolol Hydrochloride 300 mg, 1 p.o. t.i.d. 2. HCTZ 25 mg, 1 p.o. q.d. 3. Crestor 10 mg, 1 p.o. q.d. CHIEF COMPLAINTS F/u on hypertesion HISTORY OF PRESENT ILLNESS I had the pleasure of seeing your patient, Micaela Steele, at the [facility] on May 11, 2004. As you know, she is a 68-year-old woman whose cardiac risk factors include age, postmenopausal state, hypertension, and hyperlipidemia. She comes in today to follow up on her blood pressure control. Her blood pressure has been incredibly difficult to control. I ended up adding 200 mg p.o. q. noon to her antihypertensive regimen. She was already taking labetalol 200 mg p.o. q.a.m. andq.p.m. She continues to have elevated blood pressures but is adamant that she does not want to be admitted to the hospital. She complains of headaches which tend to be worse at night. She states thatshe has been having some difficulty sleeping. As you know, she has had INBOUND SALES MANAGER of both of her renal arteries done in February. She is scheduled for a follow up appointment with the vascular surgeons at [facility]. She denies any chest pain. She has had no shortness of breath. Her transthoracic echocardiogram did not show any evidence for end-organ damage. She has been avoiding salt and has been trying various relaxation techniques. During her last clinic visit I checked a fasting lipidpanel on her. Her LDL was 171. I ended up putting her back on her Crestor at 10 mg q.h.s. PAST HISTORY Past Medical Illnesses: hypertension-uncontrolled, hyperlipidemia Cardiology Procedures-Invasive: renal angiography and revascularization Feb 2004 Cardiology Procedures-Noninvasive: EKG FAMILY HISTORY: Father - Age 81, old age; Mother - Age 72, heart problems; Brother 1 - Age 86, heart problems; Sister 1 - osteoarthritis and osteoporosis; CARDIAC RISK FACTORS Tobacco Abuse: negative; Family History of Heart Disease: positive; Hyperlipidemia: positive; Hypertension: positive; Diabetes Mellitus: negative; Prior History of Heart Disease: negative; Obesity:negative; Sedentary Life Style:negative; Age:positive; Menopausal:positive, on hormonal replacement ___ SOCIAL HISTORY Alcohol Use - drinks rarely and drinks occasionally; Smoking - denies tobacco use; Diet - regular diet without modifications; Lifestyle - ; Exercise - no regular exercise; Seat Belt Use - always; Occupation - retired; Residence - lives with ; Place of - [facility]; Spouse's Occupation - retired; REVIEW OF SYSTEMS GENERAL weight gain, 2 lbs INTEGUMENTARY denies any change in hair or nails, rashes, or skin lesions. EYES wears eye glasses/contact lenses, blurred vision EARS, NOSE, THROAT, MOUTH lightheadedness after patient takes her Labetolol RESPIRATORY dyspnea with exertion CARDIOVASCULAR denies chest pain and palpitations ABDOMINAL history of GERD and nausea GENITOURINARY-FEMALE mood swings, nocturia MUSCULOSKELETAL chronic back pain, joint pain NEUROLOGICAL headaches, numbness, sometimes PSYCHIATRIC stress, sleep disturbance ENDOCRINE fatigue, hyperlipidemia HEMATOLOGICAL/IMMUNOLOGIC easy bruising, medication allergies PHYSICAL EXAMINATION VITAL SIGNS: Blood Pressure: 196/108 Sitting, Right arm, regular cuff 194/98 Right arm 184/96 Left arm Pulse- 76.00/min. Weight- 143.00 lbs. Height- 62.00 Temperature- .00 CONSTITUTIONAL cooperative, alert and oriented,well developed, well nourished, in no acute distress. SKIN warm and dry to touch, no apparent skin lesions, or masses noted. HEAD normocephalic, atraumatic EYES Pupils equal and round, conjunctivae and lids unremarkable, sclera white, no xanthalasma ENT no pallor or cyanosis, dentition good NECK carotid pulses are full and equal bilaterally, JVP normal, no carotid bruit, no thyromegaly CHEST normal symmetry, no tenderness to palpation, normal respiratory excursion, no intercostal retraction, no use of accessory muscles, clear to auscultation and percussion. CARDIAC nl S1, S2, RRR, +S4 at apex, no audible murmur ABDOMEN abdomen soft, bowel sounds normoactive, no masses, no hepatosplenomegaly, non- tender, no bruits PERIPHERAL PULSES pulses full and equal in all extremities, no bruits auscultated. EXTREMITIES & BACK no deformities, clubbing, cyanosis, erythema or edema observed. There are no spinal abnormalities noted. Normal muscle strength and tone. LYMPHATICS no lymphadenopathy PSYCHIATRIC oriented to time, place, and person, no difficulties with speech or language, normal memory NEUROLOGICAL no gross motor deficits noted, affect appropriate, oriented to time, person and place. MEDICATIONS UPDATED TODAY: Labetolol Hydrochloride 300 mg, 1 p.o. t.i.d., #90 HCTZ 25 mg, 1 p.o. q.d., #60 MEDICATION STOPPED TODAY: Labetolol Hydrochloride 100 mg IMPRESSIONS/PLAN Micaela Steele is a 68-year-old woman with poorly controlled hypertension. She has a history of fibromuscular dysplasia and is status post angioplasty to both of her renal arteries. When the procedure was initially done her systolic blood pressure dropped from 210 mmHg to 153 mmHg. Since then I have had a great deal of difficulty with her blood pressure control. I ended up changing her regimenfrom Hyzaar, atenolol, and a calcium channel serjio to just labetalol. I have been titrating up her dose of labetalol. Initially she was on 200 mg p.o. b.i.d. She is up to 200 mg p.o. t.i.d. Her blood pressures remain elevated. I rechecked her blood pressure in the right arm. It was 194/98 mmHg. In the left arm it was 184/96 mmHg. I increased her labetalol to 300 mg p.o. t.i.d. I told her to check her blood pressure prior to bedtime. If it was greater than 170/90 mmHg I told her to also take hydrochlorothiazide at 25 mg p.o. q.p.m. My preference would be to admit this patient to the hospitalto have her blood pressure controlled in a more expeditious fashion. She was adamant that she did not want to be admitted to [facility]. As a compromise I will be at the [facility] next week. I told her to come in Friday to follow up on her blood pressure control. I told her if she had any problems with persistent headaches, visual changes, or any other symptoms reminiscent of a stroke that she should go to the Emergency Room immediately. I will plan to see her Friday at [facility]. I also encouraged her to move up her follow up appointment with the vascular surgeon who did her INBOUND SALES MANAGER of both of her renal arteries. I do not hear any bruits on her abdominal exam. It was a pleasure to participate in the care of this very nice lady. If you have any questions at all regarding her Cardiology Clinic visit today, please do not hesitate to contact me. TODAYS ORDERS 1. Return Visit 3 days Shanique Yeh M.D. documented in this encounter Plan of Treatment Not on file documented as of this encounter Visit Diagnoses Not on filedocumented in this encounter Care Teams Shuttle Bus Driver Relationship Specialty Start Date End Date Basim Rich MD PCP - General Family Practice 01/29/13 08/17/13 Basim Luo MD PCP - General Family Practice 08/18/13 04/22/18 Shanique Yeh MD PCP - General Cardiology 04/23/18 08/23/18 Samantha Willson MD PCP - Assigned PCP 04/17/18 09/22/18 Samantha Willson MD PCP - General Family Practice 08/24/18 02/20/22 [place] [id number] [address] [id number] PCP - General Internal Medicine 02/21/22 Samantha Willson MD Assigned PCP 04/17/18 08/05/20 Michelle Rocha PA-C [id number] [place] [id number] Assigned PCP 08/06/20 11/18/20 Samantha Willson MD Assigned PCP 11/19/20 12/28/21 Jett Choi DO [address] [facility] [place] [id number] Assigned PCP 12/29/21 03/29/22 [place] [id number] [address] [id number] Assigned PCP 03/30/22 documented as of this encounter
--- OUTSIDE RECORDS SUMMARY | 2024-01-23 05:56 | XMS_ITS | Encounter Summary ---
Author Organization [facility] Address [facility] [place] [address] Care Team Providers Care Director Of Psychology Name Role Phone Basim Rich MD Primary Care Provider [phone] Basim Luo MD Primary Care Provider Un available Shanique Yeh MD Primary Care Provider [phone] Samantha Willson MD Unavailable Unavailable Samantha Willson MD Primary Care Provider Unavailab Samantha Dueñas MD Unavailable Unavailable Michelle Rocha PA-C Unavailable [phone] Samantha Willson MD Unavailable Unavailable Jett Choi DO Unavailable + [phone] Rosa Lino MD Primary Care Provider [phone] Rosa Lino MD Unavailable [phone] Encounter Details Date Type Department Care Team (Late st Contact Info) Description 04/25/2005 Office Visit-[facility] [address] [place] [phone] Unknown, MD Lucila Social History Tobacco Use Types Packs/Day Years Used Date Smoking Tobacco: Never Assessed Sex and Gender Information Value Date Recorded Sex Assigned at Not on file Gender Identity Not on file Sexual Orientation Not on file documented as of this encounter Progress Notes * Unknown, MD Lucila - 05/14/2005 3:15 PM CDT Progress Note Created by: Shanique Yeh M.D. DATE: 04/25/2005 MICAELA STEELE DATE OF : 1935 AGE: [age] years old Referring Physician: ZE NGO Referring Clinic: [facility] CURRENT DIAGNOSES 1. 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 - Hyperlipidemia, 272.4 ALLERGIES Codeine, Hives MEDICATIONS (including any changes made today) 1. HCTZ 25 mg, 1 p.o. q.d. 2. Crestor 10 mg, 1 p.o. qHS 3. Labetolol Hydrochloride 300 mg, 1 p.o. t.i.d. 4. Excedrin 250 mg-250 mg-65 mg, PRN CHIEF COMPLAINTS Followup of Essential hypertension, malignant HISTORY OF PRESENT ILLNESS I had the pleasure of seeing our mutual patient, Micaela Steele, in followup at the [facility], at our [place] office, on April 25, 2005. As you know, Mrs. Steele is a 69-year-old woman who has had hypertension that has been extremely difficult to control. She was diagnosed with fibromuscular dysplasia in the summer. She had angioplasty of both of her renal arteries. In May of 2004, she had re-imaging of the renal arteries in the form of an MRI. The renal arteries were felt to be patent. I have been seeing the patient for the last year. Currently, I have her on 300 mg of labetalol in the morning and in the evening she takes 200 mg at noon. She also takes 25mg of hydrochlorothiazide in the evening. She did bring her blood pressures for me to review. Her systolic blood pressures at home have been between 140 and 150 mmHg. Her diastolic blood pressures have been anywhere from the 80s to the 100 range. On my recheck today, in the left arm, the blood pressure was 160/88 mmHg; in the right arm, the blood pressure was 158/94 mmHg. As you know, she has chronic difficulties with her back. She was seeing a physical therapist. There was some talk about doing an injection to a trigger point area; however, she decided against having any injections to the back area. She also discontinued her physical therapy sessions. She is attempting various relaxation exercises. She has been taken hot baths. Her daughter often gives her a massage in the neck and back area. The patient also is trying to avoid salt. She denies any problems with chest pain or shortness of breath. She has not had any paroxysmal nocturnal dyspnea,orthopnea, or pedal edema. She has a great deal of difficulty falling asleep and staying asleep. She denies any problems with snoring. PAST HISTORY Past Medical Illnesses: hypertension-uncontrolled, hyperlipidemia [...] negative; Obesity:negative; Sedentary Life Style:negative; Age:positive; Menopausal:positive, no hormonal replacement ___ SOCIAL HISTORY Alcohol Use - holidays only and wine; Smoking - never smoked; Diet - regular diet without modifications, caffeine use-3-4 per day and low sodium (less than 2 grams); Lifestyle - ; Exercise - no regular exercise and exercise is limited due to physical disability; Seat Belt Use - always; Occupation - retired; Residence - lives with ; Place of - [facility]; Spouse's Occupation - retired; REVIEW OF SYSTEMS GENERAL feels well, no change in exercise tolerance. INTEGUMENTARY denies any change in hair or nails, rashes, or skin lesions. EYES wears eye glasses/contact lenses, blurred vision EARS, NOSE, THROAT, MOUTH denies any hearing loss, epistaxis, hoarseness or difficulty speaking. RESPIRATORY denies dyspnea, snoring, cough, wheezing or hemoptysis. CARDIOVASCULAR dizziness better and shorter in duration ABDOMINAL history of GERD GENITOURINARY-FEMALE mood swings, nocturia, hot flashes MUSCULOSKELETAL chronic back pain, joint pain NEUROLOGICAL headaches, numbness, sometimes PSYCHIATRIC stress, sleep disturbance, same ENDOCRINE fatigue, hyperlipidemia HEMATOLOGICAL/IMMUNOLOGIC easy bruising, medication allergies PHYSICAL EXAMINATION VITAL SIGNS: Blood Pressure: 163/100 Sitting, Left arm, regular cuff 165/91 Sitting, Right arm, regular cuff 160/88 Left arm 158/94 Right arm Pulse- 71.00/min. Weight- 142.00 lbs. Height- 62.50 Temperature- .00 CONSTITUTIONAL cooperative, alert and oriented,well [...] auscultation and percussion. CARDIAC nl S1, S2, RRR; no S3 or S4; no murmur ABDOMEN abdomen soft, bowel sounds normoactive, [...] time, person and place. MEDICATIONS UPDATED TODAY: Crestor 10 mg, 1 p.o. qHS Labetolol Hydrochloride 300 mg, 1 p.o. t.i.d., #90 MEDICATION STOPPED TODAY: Labetolol Hydrochloride 300 mg IMPRESSIONS/PLAN Micaela Steele is a 69-year-old woman with a history of fibromuscular dysplasia, status-post angioplasty to her bilateral renal arteries. The patient continues to have some difficulties with bloodpressure control. I ended up increasing her labetalol dose to 300 mg PO t.i.d. I also encouraged her to stay on the hydrochlorothiazide at a dose of 25 mg PO q. p.m. She continues on the Crestor for her dyslipidemia. In terms of her lipids, I would recommend that her triglycerides be less than 150,HDL greater than 50, and LDL less than 130. In terms of lifestyle modifications to help with her blood pressure control, I encouraged her to try to walk for 30 minutes, 5 days a week. This would help promote some weight loss. If she had better control of her weight, I think her blood pressure wouldgo down slightly. She does admit to some dietary indiscretion. She states that she will avoid salt.I will plan to see her back in my clinic in six month's time. At that point, I will reassess her ant ihypertensive regimen and make modifications as needed. I would be comfortable with her systolic blood pressure between 140 and 160 mmHg. I would like to keep her diastolic blood pressure no higher than 90 mmHg. It was my pleasure to participate in the care of this very nice woman. It is always my pleasure to see her in clinic. TODAYS ORDERS 1. Return Visit 6 months Shanique Yeh M.D. documented in this encounter Plan of Treatment Not on file documented as of this encounter Visit Diagnoses Not on filedocumented in this encounter Care Teams Director Of Psychology Relationship Specialty Start Date End Date Basim Rich MD PCP - General Family Practice 01/29/13 08/17/13 Basim Luo MD PCP - General Family Practice 08/18/13 04/22/18 Shanique Yeh MD PCP - General Cardiology 04/23/18 08/23/18 Samantha Willson MD PCP - Assigned PCP 04/17/18 09/22/18 Samantha Willson MD PCP - General Family Practice 08/24/18 02/20/22 [place] [id number] [place] [id number] PCP - General Internal Medicine 02/21/22 Samantha Willson MD Assigned PCP 04/17/18 08/05/20 Michelle Rocha PA-C [id number] [place] [address] Assigned PCP 08/06/20 11/18/20 Samantha Willson MD Assigned PCP 11/19/20 12/28/21 Jett Choi DO [address] [facility] [place] [id number] Assigned PCP 12/29/21 03/29/22 [place] [id number] [address] [id number] Assigned PCP 03/30/22 documented as of this encounter
--- OUTSIDE RECORDS SUMMARY | 2024-01-23 05:56 | XMS_ITS | Encounter Summary ---
Author Organization [place] Address [facility] [place] [address] Care Team Providers Care Panel Maker Name Role Phone Basim Rich MD Primary Care Provider [phone] Basim Luo MD Primary Care Provider Un available Shanique Yeh MD Primary Care Provider [phone] Samantha Willson MD Unavailable Unavailable Samantha Willson MD Primary Care Provider Unavailab Samantha Dueñas MD Unavailable Unavailable Michelle Rocha PA-C Unavailable [phone] Samantha Willson MD Unavailable Unavailable Jett Choi DO Unavailable + [phone] Rosa Lino MD Primary Care Provider [phone] Rosa Lino MD Unavailable [phone] Encounter Details Date Type Department Care Team (Late st Contact Info) Description 10/31/2004 Office Visit-[facility] [address] [place] [phone] Unknown, MD Lucila Social History Tobacco Use Types Packs/Day Years Used Date Smoking Tobacco: Never Assessed Sex and Gender Information Value Date Recorded Sex Assigned at Not on file Gender Identity Not on file Sexual Orientation Not on file documented as of this encounter Progress Notes * Unknown, MD Lucila - 11/02/2004 11:21 AM CDT Progress Note Created by: Shanique Yeh M.D. DATE: 10/31/2004 MICAELA STEELE DATE OF : 1935 AGE: [age] years old Referring Physician: ZE NGO Referring Clinic: [facility] CURRENT DIAGNOSES 1. 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 - Hyperlipidemia, 272.4 ALLERGIES Codeine, Hives MEDICATIONS (including any changes made today) 1. Labetolol Hydrochloride 300 mg, 1 t.i.d. 2. HCTZ 25 mg, 1 p.o. q.d. 3. Excedrin 250 mg-250 mg-65 mg, PRN CHIEF COMPLAINTS HTN HISTORY OF PRESENT ILLNESS <FONT FACE=Water And Fire Technician New>I had the pleasure of seeing our mutual patient, Micaela Steele, at the [facility] on October 31, 2004. As you know, Mrs. Steele is a very nice 69-year-old woman who has had very difficult to control blood pressure. She was diagnosed with fibromuscular dysplasia in the summer of 2003 and had angioplasty of both of her renal arteries. In May of 2004, she had re-imaging of the renal arteries with an MRI. The renal arteries were felt to be patent. The patient continued to have difficulties with blood pressure. It sounded to me as though she had significant degenerative disc disease. This is causing pain in her neck and right arm area. I referred her to neurology who had her work with physical therapy. She states that since she has been getting therapy to her neck and arm area, she feels much better. Her systolic blood pressures at home havebeen in the 160 range. She denies any problems with headaches or visual changes. She has been compliant with her medications. She takes hydrochlorothiazide in the evening. She had been taking 200 mg of labetalol in the morning followed by 300 mg at noon and 300 mg in the evening. She tells me that she has had no problems with paroxysmal nocturnal dyspnea, orthopnea or pedal edema. She denies any chest pain. She does not complain of any lightheadedness, presyncope or syncope. She denies any diffi culties with a cough. She tells me that she is not taking any medications for pain control, but with her physical therapy sessions, she states that her level of discomfort is much lower. <FONT FACE=System> PAST HISTORY Past Medical Illnesses: hypertension-uncontrolled, hyperlipidemia [...] - lives with ; Place of - [place]; Spouse's Occupation - retired; REVIEW OF SYSTEMS GENERAL denies recent weight loss, weight gain, fever or chills or change in exercise tolerance. INTEGUMENTARY denies any change in hair or nails, rashes, or skin lesions. EYES wears eye glasses/contact lenses, blurred vision EARS, NOSE, THROAT, MOUTH denies any hearing loss, epistaxis, hoarseness or difficulty speaking. RESPIRATORY dyspnea with exertion CARDIOVASCULAR edema of the ankles ABDOMINAL history of GERD and nausea GENITOURINARY-FEMALE mood swings, nocturia, hot flashes MUSCULOSKELETAL chronic back pain, joint pain NEUROLOGICAL headaches, numbness, sometimes PSYCHIATRIC stress, sleep disturbance, same ENDOCRINE fatigue, hyperlipidemia HEMATOLOGICAL/IMMUNOLOGIC easy bruising, medication allergies PHYSICAL EXAMINATION VITAL SIGNS: Blood Pressure: 180/98 174/94 Right arm 162/92 Left arm Pulse- 74.00/min. Weight- 143.60 lbs. Height- 62.00 Temperature- .00 CONSTITUTIONAL cooperative, [...] UPDATED TODAY: Labetolol Hydrochloride 300 mg, 1 t.i.d., #90 MEDICATION STOPPED TODAY: Labetolol Hydrochloride 200 mg, Crestor 10 mg and Labetolol Hydrochloride 300 mg <FONT FACE=Water And Fire Technician New> IMPRESSION/PLAN: Micaela Steele is a 69-year-old woman with the history of fibromuscular dysplasia status post angioplasty to her bilateral renal arteries. She continues to have some difficulties with high blood pressure. Since undergoing physical therapy for the neck and arm area, her chronic pain in these areas has improved tremendously. On my recheck in the right arm, her blood pressure zbx378/94 mmHg. In the left arm, it was 162/92 mmHg. I elected to increase her labetalol dose to 300 mg p.o., t.i.d. I also had her continue her hydrochlorothiazide at 25 mg p.o., q. p.m. I encouraged her to continue with her physical therapy. I told her that I would like to see her systolic blood pres sures between 150 and 160 mmHg. She continues on the Crestor for her dyslipidemia. Her goal LDL is less than 130, triglycerides less than 150 and HDL greater than 50. I encouraged Mrs. Steele to continue with her present activity level. I told her to avoid salt. I also told her that weight loss would potentially improve her blood pressure control. I recommended decreasing her portion size and making an attempts at caloric restriction. I will plan to see her back in my clinic in three months' time. For convenience sake to her, I will see her in our [facility]. As always, it is a pleasure to participate in the care of this very nice woman. <FONT FACE=System> TODAYS ORDERS 1. Return Visit 3 months Shanique Yeh M.D. documented in this encounter Plan of Treatment Not on file documented as of this encounter Visit Diagnoses Not on filedocumented in this encounter Care Teams Panel Maker Relationship Specialty Start Date End Date Basim Rich MD PCP - General Family Practice 01/29/13 08/17/13 Basim Luo MD PCP - General Family Practice 08/18/13 04/22/18 Shanique Yeh MD PCP - General Cardiology 04/23/18 08/23/18 Samantha Willson MD PCP - Assigned PCP 04/17/18 09/22/18 Samantha Willson MD PCP - General Family Practice 08/24/18 02/20/22 [place] [id number] [address] [address] PCP - General Internal Medicine 02/21/22 Samantha Willson MD Assigned PCP 04/17/18 08/05/20 Michelle Rocha PA-C [address] [address] [address] Assigned PCP 08/06/20 11/18/20 Samantha Willson MD Assigned PCP 11/19/20 12/28/21 Jett Choi DO [address] [place] [address] Assigned PCP 12/29/21 03/29/22 [place] [address] [address] [address] Assigned PCP 03/30/22 documented as of this encounter
--- OUTSIDE RECORDS SUMMARY | 2024-01-23 05:56 | XMS_ITS | Encounter Summary ---
Author Organization [place] Address [facility] [place] [address] Care Team Providers Care Negative Notcher Name Role Phone Basim Rich MD Primary Care Provider [phone] Basim Luo MD Primary Care Provider Un available Shanique Yeh MD Primary Care Provider [phone] Samantha Willson MD Unavailable Unavailable Samantha Willson MD Primary Care Provider Unavailab Samantha Dueñas MD Unavailable Unavailable Michelle Rocha PA-C Unavailable [phone] Samantha Willson MD Unavailable Unavailable Jett Choi DO Unavailable + [phone] Rosa Lino MD Primary Care Provider [phone] Rosa Lino MD Unavailable [phone] Encounter Details Date Type Department Care Team (Late st Contact Info) Description 12/11/2005 Office Visit-[facility] [address] [place] [phone] Unknown, MD Lucila Social History Tobacco Use Types Packs/Day Years Used Date Smoking Tobacco: Never Assessed Sex and Gender Information Value Date Recorded Sex Assigned at Not on file Gender Identity Not on file Sexual Orientation Not on file documented as of this encounter Progress Notes * Unknown, MD Lucila - 12/17/2005 4:54 PM CDT Progress Note Created by: Shanique Yeh M.D. DATE: 12/11/2005 MICAELA STEELE DATE OF : 1935 AGE: [age] years old Referring Physician: ZE NGO Referring Clinic: [facility] CURRENT DIAGNOSES 1. 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 - Hyperlipidemia, 272.4 ALLERGIES Codeine, Hives MEDICATIONS (including any changes made today) 1. HCTZ 25 mg, 1 p.o. q.d. 2. Crestor 10 mg, 1 p.o. qHS 3. Labetolol Hydrochloride 300 mg, 1 p.o. t.i.d. 4. Excedrin 250 mg-250 mg-65 mg, PRN CHIEF COMPLAINTS Followup of - Hyperlipidemia and HTN HISTORY OF PRESENT ILLNESS I had the pleasure of seeing our mutual patient, Micaela Steele, in followup at the [facility] at our [place] office on December 11, 2005. As you know, Mrs. Steele is a 70-year-old woman who has had hypertension which has been very difficult to control. The patient was diagnosed with fibromuscular dysplasia in the summer. She has had angioplasty to both of her renal arteries. In May,, she was reimaged. She had an MRI of the renal arteries performed. It was felt that the renal arteries were patent. The patient is currently on 300 mg of labetalol in the morning and in the evening. She takes 200 mg at noon. The patient's blood pressures systolically have been between 120-160 mmHg. Diastolically she is predominantly around 90 mmHg. There have been some higher readings up to about 110 mmHg. She notices this when she has had an argument with her . Overall the trends are good. Interestingly, though, when her blood pressure is in a normotensive range shefeels completely fatigued and is unable to do anything all day long. I think the patient needs higher systolic blood pressures to go about her daily functions. As I have stated in my previous dictations, I think systolic blood pressures between 140-160 mmHg are the desired range for this particularpatient. In terms of diastolic blood pressure, I would like to try to keep the diastolic blood pressure below 90 mmHg. The patient appears to be tolerating the labetalol well. Overall she also continues on a low dose of hydrochlorothiazide. The patient describes some discomfort in her neck area. She tells me that she has finished with physical therapy in this area and is considering going to a chiropractor. She tries to apply heat to the area. She will do this with warm showers or soaking in a hot tub. The patient had been on Lipitor in the past. She has been on Crestor since April,. Iasked her whether she felt her muscle aches were worse since she was put on the Crestor. She feels that there may be a correlation. As a trial I recommended to her that she stop the Crestor for abouta week and see if her muscle aches and pains improve. I will also check a creatinine kinase on this patient. In addition, she will have a potassium and magnesium checked just to make sure that this is not cramping from low potassium or low magnesium levels. The patient is also interested in starting an osteoporosis program. She would be on magnesium every single day. I wanted a baseline magnesiumlevel before I said it was okay for her to receive those supplements on a daily basis. The patient denies any problems with sustained chest discomfort. Very rarely she will get a discomfort in the center of her chest that only lasts a few seconds. She occasionally has headaches but this has not been a recurrent problem. She only gets lightheaded when her blood pressure is in a normotensive range. She has not had any paroxysmal nocturnal dyspnea, orthopnea, or pedal edema. She denies any difficulties with palpitations. PAST HISTORY Past Medical Illnesses: hypertension-uncontrolled, hyperlipidemia, DJD Cardiology Procedures-Invasive: renal angiography and revascularization Feb 2004 Cardiology Procedures-Noninvasive: EKG , echocardiogram April 2004 PMHx Echo Results: 05/02/04=Conc.LVH, LAD, Mild/mod.MR, Mild PH,AI,TR,PI FAMILY HISTORY: Father - Age 81, old age; Mother - Age 72, heart problems; Brother 1 - Age 86, heart problems; Sister 1 - osteoarthritis and osteoporosis; CARDIAC RISK FACTORS Tobacco Abuse: negative; Family History of Heart Disease: positive; Hyperlipidemia: positive, lipidstatus unknown; Hypertension: positive; Diabetes Mellitus: negative; Prior History of Heart Disease: negative; Obesity:negative; Sedentary Life Style:negative; Age:positive; Menopausal:positive, no hormonal replacement SOCIAL HISTORY Alcohol Use - holidays only and wine; Smoking - never smoked; Diet - regular diet without modifications, caffeine use-3-4 per day and low sodium (less than 2 grams); Lifestyle - ; Exercise - some exercise, walking and yard work; Seat Belt Use - always; Occupation - retired; Residence - liveswith ; Place of - [facility]; Spouse's Occupation - retired; REVIEW OF SYSTEMS GENERAL increased fatigue, increased weight gain INTEGUMENTARY denies any change in hair or nails, rashes, or skin lesions. EYES wears eye glasses/contact lenses, blurred vision EARS, NOSE, THROAT, MOUTH denies any hearing loss, epistaxis, hoarseness or difficulty speaking. RESPIRATORY dyspnea with exertion CARDIOVASCULAR dizziness ABDOMINAL history of GERD GENITOURINARY-FEMALE mood swings, nocturia, hot flashes MUSCULOSKELETAL chronic back pain, joint pain NEUROLOGICAL headaches, numbness, sometimes PSYCHIATRIC stress, sleep disturbance, same ENDOCRINE fatigue, hyperlipidemia HEMATOLOGICAL/IMMUNOLOGIC easy bruising, medication allergies PHYSICAL EXAMINATION VITAL SIGNS: Blood Pressure: 157/89 Sitting, Left arm, regular cuff Pulse- 72.00/min. Weight- 145.00 lbs. Height- 62.50 Temperature- .00 CONSTITUTIONAL cooperative, [...] time, person and place. MEDICATIONS UPDATED TODAY: IMPRESSIONS/PLAN Micaela Steele is a very nice 70-year-old woman with cardiac risk factors of age, postmenopausalstate, hypertension, and dyslipidemia. The patient's blood pressure appears to be reasonably controlled with her labetalol. I am inclined to leave her on her current dose of labetalol and hydrochlorothiazide. The discomfort in her neck could be exacerbating her blood pressure problems. I have stopped the Crestor to see if her neck discomfort improves. I told her if she felt a chiropractor would help her I was all for that idea. Anything that could get her pain in the neck under reasonable control I think would help with her blood pressure control. The patient is minimizing her salt intake. She avoids alcohol. She is at a reasonable weight. She walks on a regular basis. I have drawn a creatinine kinase on the patient. Also magnesium and potassium levels are pending. If her creatinine kinase then I think we should discontinue the Crestor. I also think we should discontinue the Crestor if she notes marked improvement in her neck discomfort off the medication. It sounds as though she has been on Lipitor and Zocor in the past. We will have to consider another statin should she find that she feels much better off the Crestor. The patient will be called with the results of her aforementioned studies. She was also instructed to call the [facility] with an update of how she is feeling off of the Crestor. TODAYS ORDERS 1. CK Level Today 2. Magnesium Today 3. Potassium Today Shanique Yeh M.D. documented in this encounter Plan of Treatment Not on file documented as of this encounter Visit Diagnoses Not on filedocumented in this encounter Care Teams Negative Notcher Relationship Specialty Start Date End Date Basim Rich MD PCP - General Family Practice 01/29/13 08/17/13 Basim Luo MD PCP - General Family Practice 08/18/13 04/22/18 Shanique Yeh MD PCP - General Cardiology 04/23/18 08/23/18 Samantha Willson MD PCP - Assigned PCP 04/17/18 09/22/18 Samantha Willson MD PCP - General Family Practice 08/24/18 02/20/22 [place] [id number] [place] [address] PCP - General Internal Medicine 02/21/22 Samantha Willson MD Assigned PCP 04/17/18 08/05/20 Michelle Rocha PA-C [id number] [address] [address] Assigned PCP 08/06/20 11/18/20 Samantha Willson MD Assigned PCP 11/19/20 12/28/21 Jett Choi DO [address] [facility] [place] [id number] Assigned PCP 12/29/21 03/29/22 [place] [address] [address] [address] Assigned PCP 03/30/22 documented as of this encounter
--- OUTSIDE RECORDS SUMMARY | 2024-01-23 05:56 | XMS_ITS | Encounter Summary ---
Author Organization [place] Address [facility] [place] [address] Care Team Providers Care Python Consultant Name Role Phone Basim Rich MD Primary Care Provider [phone] Basim Luo MD Primary Care Provider Un available Shanique Yeh MD Primary Care Provider [phone] Samantha Willson MD Unavailable Unavailable Samantha Willson MD Primary Care Provider Unavailab Samantha Dueñas MD Unavailable Unavailable Michelle Rocha PA-C Unavailable [phone] Samantha Willson MD Unavailable Unavailable Jett Choi DO Unavailable + [phone] Rosa Lino MD Primary Care Provider [phone] Rosa Lino MD Unavailable [phone] Encounter Details Date Type Department Care Team (Late st Contact Info) Description 05/29/2004 Office Visit-[facility] [address] [place] [phone] Unknown, DoctorMD Social History Tobacco Use Types Packs/Day Years Used Date Smoking Tobacco: Never Assessed Sex and Gender Information Value Date Recorded Sex Assigned at Not on file Gender Identity Not on file Sexual Orientation Not on file documented as of this encounter Progress Notes * Unknown, MD Lucila - 07/26/2004 12:56 PM CST Progress Note Created by: Shanique Yeh M.D. DATE: 05/29/2004 MICAELA STEELE DATE OF : 1935 AGE: [age] years old Referring Physician: ZE NGO Referring Clinic: [facility] CURRENT DIAGNOSES 1. 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 - Hyperlipidemia, 272.4 ALLERGIES Codeine, Hives MEDICATIONS (including any changes made today) 1. HCTZ 25 mg, 1 p.o. q.d. 2. Labetolol Hydrochloride 200 mg, 1 p.o. q.d. 3. Crestor 10 mg, 1 p.o. q.d. 4. Excedrin 250 mg-250 mg-65 mg, PRN 5. Labetolol Hydrochloride 300 mg, 1 p.o. b.i.d. CHIEF COMPLAINTS Followup of Essential hypertension, malignant HISTORY OF PRESENT ILLNESS I had the pleasure of seeing our mutual patient, Micaela Steele, at the [facility] on May 29, 2004. As you know, Mrs. Steele is a very nice 68-year-old woman who has had very difficult to control hypertension. I have been seeing her almost weekly since I last met her in April.As you know, she has a history of fibromuscular dysplasia and is status post angioplasty to both ofher renal arteries. She did see her vascular surgeon about a week ago. An MRA was done and it was found that both of the renal arteries were patent. She tells me that her blood pressures have been under much better control, however when her systolic blood pressures get down to the 120s - 130s rangeshe feels very light-headed and she is unable to do anything for the majority of the day. She is currently on labetalol 300mg p.o. t.i.d. She is also taking 25mg of HCTZ in the evening. Her blood pressures have been tending to run high in the evening. She tells me that she continues to have headaches but she feels that they are much improved. She has had no presyncopal or syncopal symptoms. She de nies any shortness of breath or chest discomfort. She has not had any difficulty with paroxysmal nocturnal dyspnea, orthopnea, or pedal edema. Her weight has remained stable. She feels that she is having less episodes of light-headedness as time passes. Her blood pressure in clinic today was 144/80in the right arm and 144/88 in the left arm. She denies any visual changes. She has had no TIA or stroke type symptoms. PAST HISTORY Past Medical Illnesses: hypertension-uncontrolled, hyperlipidemia Cardiology Procedures-Invasive: renal angiography and revascularization Feb 2004 Cardiology Procedures-Noninvasive: EKG <B><FONT FACE=System> FAMILY HISTORY: Father - Age 81, old [...] - lives with ; Place of - [facility]; Spouse's Occupation - retired; REVIEW OF SYSTEMS GENERAL decreased exercise tolerance, decreased energy INTEGUMENTARY denies any change in hair or nails, rashes, or skin lesions. EYES wears eye glasses/contact lenses, blurred vision EARS, NOSE, THROAT, MOUTH lightheadedness after patient takes her Labetolol, bp goes too low/then gets dizzy/needs to lie down RESPIRATORY denies dyspnea, snoring, cough, wheezing or hemoptysis. CARDIOVASCULAR negative for chest pain, negative for palpitations, positive for dizziness, worse ABDOMINAL history of GERD and nausea GENITOURINARY-FEMALE mood swings, nocturia MUSCULOSKELETAL chronic back pain, joint pain NEUROLOGICAL headaches, numbness, sometimes PSYCHIATRIC stress, sleep disturbance, same ENDOCRINE fatigue, hyperlipidemia HEMATOLOGICAL/IMMUNOLOGIC easy bruising, medication allergies PHYSICAL EXAMINATION VITAL SIGNS: Blood Pressure: / 144/80 Right arm 144/88 Left arm Pulse- .00/min. Weight- 142.00 lbs. Height- 62.50 Temperature- .00 [...] and place. MEDICATIONS UPDATED TODAY: Labetolol Hydrochloride 200 mg, 1 p.o. q.d., #30 Labetolol Hydrochloride 300 mg, 1 p.o. b.i.d., #60 MEDICATION STOPPED TODAY: Labetolol Hydrochloride 300 mg IMPRESSIONS/PLAN </B><FONT FACE=Hydroelectric Production Manager New>Micaela Steele is a 68-year-old woman with a history offibromuscular dysplasia. She is status post angioplasty to both of her renal arteries. Her MRA donerecently reveals that her angioplasty continues to be successful. Her blood pressure control is much improved with systolic blood pressures ranging between 126-170mmHg. Her diastolic blood pressures are consistently less than 90mmHg. She does feel light-headed particularly in the middle of the day.For this reason I have decreased her labetalol in the morning to 200mg p.o. q.a.m. She will continue with 300mg p.o. q. p.m. and q noon. I also told her to continue to take the scheduled HCTZ in the evening. She was happy with this plan. I told her to continue with her blood pressure checks. Typically three blood pressures checks per day at different times to see if a pattern emerges. I will planto see her back in one months time and make any further adjustments that are needed in her medicineregimen. As always, it is my pleasure to participate in the care of this very nice lady. <B><FONT FACE=System> TODAYS ORDERS 1. Return Visit 1 month Shanique Yeh M.D. documented in this encounter Plan of Treatment Not on file documented as of this encounter Visit Diagnoses Not on filedocumented in this encounter Care Teams Python Consultant Relationship Specialty Start Date End Date Basim Rich MD PCP - General Family Practice 01/29/13 08/17/13 Basim Luo MD PCP - General Family Practice 08/18/13 04/22/18 Shanique Yeh MD PCP - General Cardiology 04/23/18 08/23/18 Samantha Willson MD PCP - Assigned PCP 04/17/18 09/22/18 Samantha Willson MD PCP - General Family Practice 08/24/18 02/20/22 [place] [id number] [address] [address] PCP - General Internal Medicine 02/21/22 Samantha Willson MD Assigned PCP 04/17/18 08/05/20 Michelle Rocha PA-C [id number] [address] [address] Assigned PCP 08/06/20 11/18/20 Samantha Willson MD Assigned PCP 11/19/20 12/28/21 Jett Choi DO [address] [facility] [place] [address] Assigned PCP 12/29/21 03/29/22 [place] [address] [address] [address] Assigned PCP 03/30/22 documented as of this encounter
--- OUTSIDE RECORDS SUMMARY | 2024-01-23 05:56 | XMS_ITS | Referral Summary ---
Author Organization [place] Address [facility] [place] [address] Care Team Providers Care Insurance Territory Manager Name Role Phone Rosa Lino MD Primary Care Provider [phone] Rosa Lino MD Unavailable [phone] Allergies Active Allergy Reactions Criticality Noted Date Comments Sulfamethoxazole-Trimeth oprim Other (See Comments) 04/23/2018 Jaw tightens Codeine Sulfate Itching,Rash Low 01/29/2013 Medications Medication Sig Dispensed Refills Start Date End Date Status Cholecalciferol (VITAMIN D3 PO) Take 2,000 Units by mouth daily Active aspirin 81 MG EC tablet Take 81 mg by mouth daily Active ibuprofen (ADVIL/MOTRIN) 800 MG tablet Take 400 mg by mouth every 8 hours as needed for moderate pain ((takes 1/2 of 800 mg tablet)) Active nitroFURantoin macrocrystal-monohy drate (MACROBID) 100 MG capsuleIndications: Acute cystitis without hematuria Take 1 capsule (100 mg) by mouth 2 times daily 14 capsule 12/19/2021 Active omeprazole (PRILOSEC) [address] capsuleIndications: Hiatal hernia Take 1 capsule (20 mg) by mouth daily 90 capsule 3 02/21/2022 Active estradiol (ESTRACE) 0.1 MG/GM vaginal creamIndications:Fr equent UTI Place 1 g vaginally twice a week 42.5 g 4 03/07/2022 Active rosuvastatin (CRESTOR) 20 MG tabletIndications:H yperlipidemia LDL goal <70 TAKE ONE TABLET BY MOUTH EVERY NIGHT AT BEDTIME 60 tablet 1 07/27/2022 Active carvedilol (COREG) 25 MG tabletIndications:H ypertension goal BP (blood pressure) < 140/90 Take 1 tablet (25 mg) by mouth 2 times daily (with meals) 60 tablet 1 07/27/2022 Active amLODIPine (NORVASC) 5 MG tabletIndications:H ypertension goal BP (blood pressure) < 140/90 Take 1 tablet (5 mg) by mouth daily 90 tablet 1 08/07/2022 Active carvedilol (COREG) 25 MG tabletIndications:H ypertension goal BP (blood pressure) < 140/90 Take 1 tablet (25 mg) by mouth 2 times daily (with meals) 180 tablet 1 08/07/2022 Active losartan (COZAAR) 25 MG tabletIndications:H ypertension goal BP (blood pressure) < 140/90 Take 1 tablet (25 mg) by mouth 2 times daily 180 tablet 1 08/07/2022 Active rosuvastatin (CRESTOR) 20 MG tabletIndications:H yperlipidemia LDL goal <70 Take 1 tablet (20 mg) by mouth every evening 90 tablet 1 08/07/2022 Active Active Problems Problem Noted Date Diagnosed Date Bilateral carotid artery disease, unspecified ty pe (H24) 02/21/2022 Thyroid nodule 03/15/2021 Overview: Incidentally noted on CTA 2018 Upper back pain on right side 12/02/2018 Hypertension goal BP (blood pressure) < 140/90 1 Hyperlipidemia LDL goal <70 05/09/2018 Cerebral aneurysm, nonruptured 05/09/2018 Small vessel disease, cerebrovascular 05/09/2018 Hypertensive encephalopathy 04/23/2018 Immunizations Name Administration Dates Next Due COVID-19 MONOVALENT 12+ (Pfizer) 08/01/2021 Influenza (IIV3) PF 07/01/2012, 0,05/11/2008,05/31/2003 ,05/15/1999,05/30/1998 Pneumococcal 23 valent 05/30/1998 Td (Adult), Adsorbed 06/20/1997 Social History Tobacco Use Types Packs/Day Years Used Date Smoking Tobacco: Never Smokeless Tobacco: Never Alcohol Use Standard Drinks/Week Comments Yes 0 (1 standard drink = 0.6 oz pur e alcohol) ON HOLIDAYS PHQ-2 Answer Date Recorded PHQ-2 Score 0 12/19/2021 Adolescent Education Answer Date Record ed Getting School Help Needed Not on file 04/27 Sex and Gender Information Value Date Recorded Sex Assigned at Not on file Gender Identity Not on file Sexual Orientation Not on file Last Filed Vital Signs Vital Sign Reading Time Taken Comments Blood Pressure 148/98 08/07/2022 11:13 AM BUDGET ANALYST Pulse 54 08/07/2022 11:13 AM BUDGET ANALYST Temperature 36.3 ??C (97.3 ??F) 02/21/2022 1:26 PM CD T Respiratory Rate 16 02/21/2022 1:26 PM CDT Oxygen Saturation 98% 08/07/2022 11:13 AM BUDGET ANALYST Inhaled Oxygen Concentration - - Weight 61.7 kg (136 lb) 02/21/2022 1:26 PM CDT Height 154.9 cm (5' 1) 02/21/2022 1:26 PM CDT Body Mass Index 25.7 02/21/2022 1:26 PM CDT Plan of Treatment Not on file Procedures Procedure Name Priority Date/Time Associated Diagnosis Comments LIPID REFLEX TO DIRECT LDL PANEL Routine 03/15/2021 3:13 PM CDT Fatigue, unspecified type Hyperlipidemia LDL goal <70 from Last 3 Months or Most Recently Relevant to Health Maintenance Results * Lipid panel reflex to direct LDL Non-fasting (03/15/2021 3:13 PM CDT) Cholesterol 150 <200 mg/dL 03/15/2021 9:15 PM CDT [facility] Comment: Age 0-19 years Desirable: <170 mg/dL Borderline high: ??170-199 mg/dl High: ?>199 mg/dl Age 20 years and older Desirable: <200 mg/dL Triglycerides 93 <150 mg/dL 03/15/2021 9:15 PM CDT [facility] Comment: 0-9 years: Normal: ?Less than 75 mg/dL Borderline high: ??75-99 mg/dL High: ? Greater than or equal to 100 mg/dL 0-19 years: Normal: ?Less than 90 mg/dL Borderline high: ??90-129 mg/dL High: ? Greater than or equal to 130 mg/dL 20 years and older: Normal: ?Less than 150 mg/dL Borderline high: ??150-199 mg/dL High: ? 200-499 mg/dL Very high: ?? Greater than or equal to 500 mg/dL Direct Measure HDL 70 >=50 mg/dL 2020 9:15 PM CDT [facility] Comment: 0-19 years: ? Greater than or equal to 45 mg/dL Low: Less than 40 mg/dL Borderline low: 40-44 mg/dL 20 years and older: Female: Greater than or equal to 50 mg/dL Male: ?? Greater than or equal to 40 mg/dL LDL Cholesterol Calculated 61 <=100 mg/dL 03/15/2021 9:15 PM CDT [facility] Comment: Age 0-19 years: Desirable: 0-110 mg/dL Borderline high: 110-129 mg/dL High: >= 130 mg/dL Age 20 years and older: Desirable: <100mg/dL Above desirable: 100-129 mg/dL Borderline high: 130-159 mg/dL High: 160-189 mg/dL Very high: >= 190 mg/dL Non HDL Cholesterol 80 <130 mg/dL 03/15/2021 9:15 PM CDT [facility] Comment: 0-19 years: Desirable: ? Less than 120 mg/dL Borderline high: ?? 120-144 mg/dL High: ? Greater than or equal to 145 mg/dL 20 years and older: Desirable: ? 130 mg/dL Above Desirable: 130-159 mg/dL Borderline high: ?? 160-189 mg/dL High: ? 190-219 mg/dL Very high: ?? Greater than or equal to 220 mg/dL Patient Fasting > 8hrs? Yes 03/15/2021 9:15 PM CDT [facility] Blood STRUCTURE OF LEFT UPPER LIMB / Unknown Venipuncture / Unknown 03/15/2021 3:13 PM CDT 03/15/2021 3:14 PM CDT Samantha Willson MD LAB - BLOOD ORDERABL ES [facility] [address] Lab (1st floor, no room number) [place] [address], [facility] [phone] from Last 3 Months or Most Recently Relevant to Health Maintenance Advance Directives For more information, please contact: [phone] * Full Code (Latest Code Status on File) Date Activated Date Inactivated Comments 04/24/2018 12:15 PM Question Answer Comments Code status determined by: Discussion with patie nt/legal decision maker * Full Code Date Activated Date Inactivated Comments 04/23/2018 10:06 PM 04/24/2018 12:15 PM Question Answer Comments Code status determined by: Discussion with patie nt/legal decision maker * Full Code Date Activated Date Inactivated Comments 12/20/2013 6:35 PM 12/21/2013 6:35 PM * Full Code Date Activated Date Inactivated Comments 12/20/2013 6:09 PM 12/20/2013 6:35 PM Care Teams Insurance Territory Manager Relationship Specialty [place] [id number] [address] [id number] PCP - General Internal Medicine 02/21/22 [place] [address] [address] [id number] Assigned PCP 03/30/22
--- OUTSIDE RECORDS SUMMARY | 2024-01-23 05:56 | XMS_ITS | Encounter Summary ---
Author Organization [place] Address [facility] [facility] [place] [address] [address] Team Prov[address] Care Pl Sql Developer Name Role Phone Rosa Lino MD Primary Care Provider [phone] Rosa Lino MD Unavailable [phone] Encounter Details Date Type Department Care Team (Late st Contact Info) Description 02/14/2023 [facility] [address] [facility] [place] [id number] Luz Villasenor MA Social History Tobacco Use Types Packs/Day Years Used Date Smoking Tobacco: Never Smokeless Tobacco: Never Alcohol Use Standard Drinks/Week Comments Yes 0 (1 standard drink = 0.6 oz pur e alcohol) ON HOLIDAYS PHQ-2 Answer Date Recorded PHQ-2 Score 0 12/19/2021 Sex and Gender Information Value Date Recorded Sex Assigned at Not on file Gender Identity Not on file Sexual Orientation Not on file documented as of this encounter Plan of Treatment Not on file documented as of this encounter Visit Diagnoses Not on filedocumented in this encounter Care Teams Pl Sql Developer Relationship Specialty [place] [address] [place] [address] PCP - General Internal Medicine 02/21/22 [place] [address] [address] [id number] Assigned PCP 03/30/22 documented as of this encounter
--- OUTSIDE RECORDS SUMMARY | 2024-01-23 05:56 | XMS_ITS | Encounter Summary ---
Author Organization [place] Address [facility] [facility] [place] [address] Care Team Providers Care Endorsement Clerk Name Role Phone Basim Rich MD Primary Care Provider [phone] Basim Luo MD Primary Care Provider Un available Shanique Yeh MD Primary Care Provider [phone] Samantha Willson MD Unavailable Unavailable Samantha Willson MD Primary Care Provider Unavailab Samantha Dueñas MD Unavailable Unavailable Michelle Rocha PA-C Unavailable [phone] Samantha Willson MD Unavailable Unavailable Jett Choi DO Unavailable [phone] Rosa Lino MD Primary Care Provider [phone] Rosa Lino MD Unavailable [phone] Encounter Details Date Type Department Care Team (Late st Contact Info) Description 07/31/2004 Office Visit-[facility] [address] [place] [id number] Unknown, DoctorMD Social History Tobacco Use Types Packs/Day Years Used Date Smoking Tobacco: Never Assessed Sex and Gender Information Value Date Recorded Sex Assigned at Not on file Gender Identity Not on file Sexual Orientation Not on file documented as of this encounter Progress Notes * Unknown, MD Lucila - 08/07/2004 9:30 AM CST Progress Note Created by: Shanique Yeh M.D. DATE: 07/31/2004 MICAELA STEELE DATE OF : 1935 AGE: [age] years old Referring Physician: ZE NGO Referring Clinic: [facility] CURRENT DIAGNOSES 1. Numbness, 782.0 2. Essential hypertension, malignant, 401.0 3. - Hyperlipidemia, 272.4 ALLERGIES Codeine, Hives MEDICATIONS (including any changes made today) 1. HCTZ 25 mg, 1 p.o. q.d. 2. Labetolol Hydrochloride 200 mg, 1 p.o. q.d. 3. Crestor 10 mg, 1 p.o. q.d. 4. Excedrin 250 mg-250 mg-65 mg, PRN 5. Labetolol Hydrochloride 300 mg, 1 p.o. b.i.d. CHIEF COMPLAINTS hypertension HISTORY OF PRESENT ILLNESS I had the pleasure of seeing our mutual patient, Mrs. Micaela Steele, at the [facility] on July 31, 2004. As you know, Mrs. Steele is a very nice 68-year-old woman who has had blood pressure that has been extremely difficult to control. 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 She underwent angioplasty. In May she had reimaging with an MRI of the renal arteries. It appeared that the renal arteries continued to be patent. Itwas the feeling of the vascular surgeon that her blood pressure problems are not secondary to fibromuscular dysplasia and if they are it is contributing to a very minimal amount. Essential hypertension seems to be the etiology of her problem. She has been keeping track of her blood pressures. I have her on the combination of labetalol and hydrochlorothiazide. It seems as though her blood pressures typically run between 130-150 systolically. The problem I think is that she has chronic pain in her neck. MRI imaging was done of the area, and she was noted to have significant degenerative disk disease. There was evidence for bony spurs in the area that were impinging on her nerves and causing her likely problems of tingling down the right extremity. She also has problems with headaches and attimes will have visual changes. These sound like TIA type events to me. I recommended that she start taking a full aspirin on a daily basis. I feel that her blood pressure is under reasonable control based on the numbers she has shown me, and her systolic blood pressures have consistently been in the 140s the last two times I have seen her. What I think is causing her problems with labile blood pressure is poor pain control. She had seen an orthopedic surgeon and it was recommended she have some type of steroid injection into her neck. However, she did not feel that she had good rapport with this particular physician and did not choose to go back. I am concerned with some of the symptoms she and her daughter describe and I do not think that hypertension can explain some of these points. Kasho feel if we could get a better handle on her chronic pain then we would have greater success interms of controlling her blood pressure. I have decided to make a referral to one of the neurologists in [place] to do a further workup on her arm tingling, headaches, and visual changes. I have requested an appointment as soon as possible to get this accomplished. I would have deferred to you, but I really wanted her to be seen as soon as possible by a neurologist. The patient tells me that when her blood pressure gets in the 130 range systolically she feels lightheaded. She has decreased her activities in the last few months in any effort to help with this chronic neck discomfort. She went to see physical therapy twice but did not feel that their exercises helped her. She is interested in seeing a chiropractor, but I felt that it would be prudent that she have a neurologic evaluation prior to getting any types of adjustments done. I was hoping that the neurologist could do further testing to evaluate for the possibility for TIAs. I do not see any grossmotor or sensory deficits on her physical examination today. Her cranial nerves appear to be intact. Her motor strength is 5/5 in the bilateral upper and lower extremities. While I am pleased with her blood pressure, I feel that if we are to get her blood pressures to stabilize in a good range she really needs this neck problem further evaluated. I also told her if Neurology felt she could have some benefit they would refer her along to Neurosurgery. As you know I had done a transthoracic echocardiogram on her when I first met her this fall. She had some mild concentric left ventricular hypertrophy but no evidence for any wall motion abnormality. I would like to do a stress test on her, butI do not feel that it would be safe to do this until her blood pressure has stabilized. For now I told her to stay on her labetalol and hydrochlorothiazide at their current doses. PAST HISTORY Past Medical Illnesses: hypertension-uncontrolled, hyperlipidemia [...] - lives with ; Place of - [facility]; Spouse's Occupation - retired; REVIEW OF SYSTEMS GENERAL decreased exercise tolerance, decreased energy, fatigue INTEGUMENTARY denies any change in hair or nails, rashes, or skin lesions. EYES wears eye glasses/contact lenses, blurred vision EARS, NOSE, THROAT, MOUTH lightheadedness after patient takes her Labetolol, bp goes too low/then gets dizzy/needs to lie down RESPIRATORY dyspnea with exertion CARDIOVASCULAR dizziness, edema of the ankles ABDOMINAL history of GERD and nausea GENITOURINARY-FEMALE mood swings, nocturia, hot flashes MUSCULOSKELETAL chronic back pain, joint pain NEUROLOGICAL headaches, numbness, sometimes PSYCHIATRIC stress, sleep disturbance, same ENDOCRINE fatigue, hyperlipidemia HEMATOLOGICAL/IMMUNOLOGIC easy bruising, medication allergies PHYSICAL EXAMINATION VITAL SIGNS: Blood Pressure: 144/90 Sitting, Left arm, regular cuff Pulse- 74.00/min. Weight- 143.40 lbs. Height- 62.50 Temperature- .00 CONSTITUTIONAL cooperative, [...] person and place. MEDICATIONS UPDATED TODAY: IMPRESSIONS/PLAN </B><FONT FACE=Picture Painter New> Micaela Steele is a 68-year-old woman with a history of fibromuscular dysplasia. She is status post angioplasty to both of her renal arteries. She seems to have predominantly essential hypertension with a component of elevated blood pressures from fibromuscular dysplasia. She has had little improvement in her blood pressure since the angioplasty of herrenal arteries. Her blood pressures seem reasonable with her labetalol and hydrochlorothiazide combination. However, she continues to have chronic pain in her neck. She is having tingling in her right arm which is likely secondary to cervical impingement from these spurs. The thing that I find concerning is she is having lightheadedness when her blood pressure gets in the 130 systolic range. She also feels headaches when her blood pressure gets a bit higher. I do not see any focal neurologic deficits on her examination but I really feel we need the assistance of Neurology to see what further tests need to be performed. I would also like help in terms of chronic pain management regarding denise. I feel if she had better pain control then her blood pressures would be much easier to control. I do not feel that she needs any further cardiac tests at this time. I have referred her to Neurology so that she can be seen as soon as possible. Until we know that these are not TIA type of events that she describes as this transient blurriness of vision and lightheadedness, I told her to take a full aspirin on a daily basis. I think she would benefit from an MRI of her head to look for any evidence of vertebrobasilar insufficiency. I will plan to see her back in my clinic in three months' time. At that point hopefully she would have seen Neurology and had a thorough neurologic assessment. It was my pleasure to participate in the care of this very nice lady. If you have any questions at all regarding her Cardiology Clinic visit today, please do not hesitate to contact me. <B><FONT FACE=System> TODAYS ORDERS 1. Neurology Consult Schedule JESSICA; pt. also has HAs 2. Return Visit 3 months Shanique Yeh M.D. documented in this encounter Plan of Treatment Not on file documented as of this encounter Visit Diagnoses Not on filedocumented in this encounter Care Teams Endorsement Clerk Relationship Specialty Start Date End Date Basim Rich MD PCP - General Family Practice 01/29/13 08/17/13 Basim Luo MD PCP - General Family Practice 08/18/13 04/22/18 Shanique Yeh MD PCP - General Cardiology 04/23/18 08/23/18 Samantha Willson MD PCP - Assigned PCP 04/17/18 09/22/18 Samantha Willson MD PCP - General Family Practice 08/24/18 02/20/22 [place] [id number] [address] [id number] PCP - General Internal Medicine 02/21/22 Samantha Willson MD Assigned PCP 04/17/18 08/05/20 Michelle Rocha PA-C [id number] [address] [id number] Assigned PCP 08/06/20 11/18/20 Samantha Willson MD Assigned PCP 11/19/20 12/28/21 Jett Choi DO [address] [facility] [address] [address] Assigned PCP 12/29/21 03/29/22 [place] [address] [address] [address] Assigned PCP 03/30/22 documented as of this encounter
--- OUTSIDE RECORDS SUMMARY | 2024-01-23 05:56 | XMS_ITS | Encounter Summary ---
Author Organization [place] Address [facility] [place] [address] Care Team Providers Care Management Accounts Manager Name Role Phone Basim Rich MD Primary Care Provider [phone] Basim Luo MD Primary Care Provider Un available Shanique Yeh MD Primary Care Provider [phone] Samantha Willson MD Unavailable Unavailable Samantha Willson MD Primary Care Provider Unavailab Samantha Dueñas MD Unavailable Unavailable Michelle Rocha PA-C Unavailable [phone] Samantha Willson MD Unavailable Unavailable Jett Choi DO Unavailable [phone] Rosa Lino MD Primary Care Provider [phone] Rosa Lino MD Unavailable [phone] Encounter Details Date Type Department Care Team (Late st Contact Info) Description 05/02/2004 Office Visit-[facility] [address] [place] [id number] Unknown, MD Lucila Social History Tobacco Use Types Packs/Day Years Used Date Smoking Tobacco: Never Assessed Sex and Gender Information Value Date Recorded Sex Assigned at Not on file Gender Identity Not on file Sexual Orientation Not on file documented as of this encounter Progress Notes * Unknown, MD Lucila - 05/08/2004 6:36 AM CDT Progress Note Created by: Shanique Yeh M.D. DATE: 05/02/2004 MICAELA STEELE DATE OF : 1935 AGE: [age] years old Referring Physician: ZE NGO Referring Clinic: [facility] CURRENT DIAGNOSES 1. 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 - Hyperlipidemia, 272.4 ALLERGIES Codeine, Hives MEDICATIONS (including any changes made today) 1. Crestor 10 mg, 1 p.o. q.d. 2. Labetolol Hydrochloride 100 mg, 1 tab q noon 3. Labetolol Hydrochloride 200 mg, 1 p.o. b.i.d. CHIEF COMPLAINTS Followup of Echo labs HISTORY OF PRESENT ILLNESS I had the pleasure of seeing your patient, Micaela Steele, at the [facility] on May 02, 2004. As you know, she is a 68-year-old woman whose cardiac risk factors include age, postmenopausal state, hypertension and hyperlipidemia. The patient has longstanding refractory hypertension. She has been on many antihypertensives in the past. She had been on Zestril and atenolol for manyyears. In the last six months, she was having a great deal of difficulty with blood pressure control. 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 She is status post SLAB PULLER of both of her renal arteries. She states that her blood pressure was better for approximately two days after her intervention. Since then her systolic blood pressureshave been consistently close to 200mmHg. The patient has been having some difficulties with headaches. She denies any visual changes. She is scheduled to see an filler shredder helper to evaluate for hypertensive retinopathy. The patient had also been on Avalide. This medication had no impact on her blood pressure. Catapres patches were used but this caused muscular pain. She was taking clonidine on a PRN basis but this was discontinued. When I last saw her in clinic, I told her to stop her Cardizem. She continued on atenolol and Hyzaar. I added labetalol at a dose of 200mg p.o. b.i.d. to her regimen. After taking her first dose of labetalol, her systolic blood pressure decreased to 130mmHg. With the decrease in her blood pressure, the patient states she felt light-headed. I believe this is secondary to the fact that for the first time she was in a normotensive range and her body was not use to blood pressures in that range. In the interim, I told Mrs. Steele to decrease her labetalol to 100mg p.o. b.i.d. She tolerated this dose and slowly titrated up her labetalol to its current dose of 200mg p.o. b.i.d. She continues on the atenolol and Hyzaar. She states that her blood pressures continue to be refractory. I had herkeep a blood pressure log for the last two weeks. Her systolic blood pressures are anywhere [id number] and her diastolic blood pressures are, by her report, between 79-113mmHg. She did take her labetalol this morning. On my check, in the left arm her blood pressure was 158/98mmHg and the right arm it was 162/92mmHg. I did obtain a transthoracic echocardiogram to assess for the possibility of coarctation. There was no evidence of this. I also wanted to look for any evidence for end organ damage. The patient had borderline left ventricular hypertrophy. There was delayed LV relaxation consistent with mild diastolic dysfunction. However, her global left ventricular systolic function was normal. The right ventricle was normal in size and function, the left atrium had mild dilatation, the right atrium was normal in size, there was no evidence for an ASD or PFO. Her mitral valve appeared structurally normal, there was mild to moderate mitral regurgitation, mild tricuspid regurgitation was seen. She had mild pulmonary hypertension. Her aortic valve was trileaflet with mild sclerosis and mild aortic insufficiency. She had mild pulmonic regurgitation. Her aorta appeared normal in all examined segments. Ideally, I would like to see her blood pressure consistently between 150-160mmHg systolic. I feel if she has a precipitous decline in her blood pressure this could also be problematic from a neurologic standpoint. I told her to not confound matters further to stop her Hyzaar and her atenolol. I will keep her on the labetalol at 200mg p.o. b.i.d. I have also added a third dose of labetalol at 100mg to be taken at noon. She is to start this regimen tomorrow. I told her to keep a careful log of her blood pressures and to call the clinic on Friday to report her blood pressures. If she obtains anytype of control with the labetalol, namely systolics between 150-160, I will make efforts to titrate up her labetalol dose. As you know, maximum doses are up to 2400mg a day. If she continues to havedifficulties, I feel that she needs to be hospitalized to get her blood pressure under better control. The patient also had a fasting lipid drawn this morning. Her total cholesterol was 270, triglycerides 101, HDL 78 and LDL 171. She is currently taking Crestor 10mg ever other day. PAST HISTORY Past Medical Illnesses: hypertension-uncontrolled, hyperlipidemia Cardiology Procedures-Noninvasive: EKG FAMILY HISTORY: Father - [...] - lives with ; Place of - [facility]; Spouse's Occupation - retired; REVIEW OF SYSTEMS GENERAL weight gain, 1 pound INTEGUMENTARY denies any change in hair or [...] allergies PHYSICAL EXAMINATION VITAL SIGNS: Blood Pressure: 170/98 Sitting, Left arm, regular cuff 158/98 left arm 162/92 right arm Pulse- 78.00/min. Weight- 141.00 lbs. Height- 62.00 Temperature- .00 CONSTITUTIONAL cooperative, [...] time, person and place. MEDICATIONS UPDATED TODAY: Hyzaar 25 mg-100 mg, 100-25 mg qd, DIRECTED Crestor 10 mg, 1 p.o. q.d., #30 Labetolol Hydrochloride 100 mg, 1 tab q noon, #30 MEDICATION STOPPED TODAY: Hyzaar 25 mg-100 mg IMPRESSIONS/PLAN Micaela Steele is a 68-year-old woman with very refractory hypertension, fibromuscular dysplasiawith renal artery stenosis could be a component to this. It is unclear to me why her blood pressureis not responding to the various blood pressure medications started. To simplify her regimen and tosee what effect the labetalol is actually having, I have decided to discontinue her other medication s. I have added a third dose of labetalol to be taken at noon. I would like to bring her blood pressure down slowly. I would like to see her systolics in the 150-160 range for the next couple weeks and if we are consistently able to have her at that level then attempt to lower her blood pressure further. I told her if she has systolics that are consistently over 200, she should go to the emergency room. When she calls back on Friday, if her blood pressures continue to be extremely elevated I think she should be admitted for blood pressure management. In regards to her lipids, her HDL looks excellent and it appears to be cardioprotective at its current level. Her triglycerides also look goodat 101. I would like to see her LDL below 130. I told her to take the Crestor every day and to takeit in the evening as cholesterol occurs at night and the medicine would have its maximum efficacy at that time. It was my pleasure to participate in the care of this very nice lady. If you have any questions at all regarding her cardiology clinic visit today, please do not hesitate to contact me. TODAYS ORDERS 1. Return Visit 1 week Shanique Yeh M.D. documented in this encounter Plan of Treatment Not on file documented as of this encounter Visit Diagnoses Not on filedocumented in this encounter Care Teams Management Accounts Manager Relationship Specialty Start Date End Date Basim Rich MD PCP - General Family Practice 01/29/13 08/17/13 Basim Luo MD PCP - General Family Practice 08/18/13 04/22/18 Shanique Yeh MD PCP - General Cardiology 04/23/18 08/23/18 Samantha Willson MD PCP - Assigned PCP 04/17/18 09/22/18 Samantha Willson MD PCP - General Family Practice 08/24/18 02/20/22 [place] [address] [address] [place] [id number] PCP - General Internal Medicine 02/21/22 Samantha Willson MD Assigned PCP 04/17/18 08/05/20 Michelle Rocha PA-C [address] [address] [address] Assigned PCP 08/06/20 11/18/20 Samantha Willson MD Assigned PCP 11/19/20 12/28/21 Jett Choi DO [address] [facility] [place] [id number] Assigned PCP 12/29/21 03/29/22 [place] [address] [address] [address] Assigned PCP 03/30/22 documented as of this encounter
--- OUTSIDE RECORDS SUMMARY | 2024-01-23 05:56 | XMS_ITS | Encounter Summary ---
Author Organization [place] Address [address] [address] Care Team Providers Care Pl Sql Developer Name Role Phone Basim Luo MD Primary Care Provider Un available Shanique Yeh MD Primary Care Provider [phone] Samantha Willson MD Unavailable Unavailable Samantha Willson MD Primary Care Provider Unavailab Samantha Dueñas MD Unavailable Unavailable Michelle Rocha PA-C Unavailable [phone] Samantha Willson MD Unavailable Unavailable Jett Choi DO Unavailable [phone] Rosa Lino MD Primary Care Provider [phone] Rosa Lino MD Unavailable [phone] Reason for Visit * Reason Onset Date Comments Pt. Information/instruction 08/23/2013 Mary ent given instructions regarding EUS/EGD and ERCP this . Patient had questions about anesthesia and said she wanted IV sedation like she had before. I explained that these procedures are more involved than the EGD and that she will probably have a MAC/ deeper sedation and she will be talking to her Anesthesiologist on before her surgery. She said OK. Pt. also told she needs an H&P before surgery. Pt. is having her H&P from last week faxed to ENDO. Encounter Details Date Type Department Care Team (Late st Contact Info) Description 08/23/2013 Telephone [facility] [place] [address] [place] [address] Madelyn Chery, RN Pt. Information/instruction (Patient given instructions regarding EUS/EGD and ERCP this . Patient had questions about anesthesia and said she wanted IV sedation like she had before. I explained that these procedures are more involved than the EGD and that she will probably have a MAC/ deeper sedation and she will be talking to her Anesthesiologist on before her surgery. She said OK. Pt. also told she needs an H&P before surgery. Pt. is having her H&P from last week faxed to ENDO. ) Social History Tobacco Use Types Packs/Day Years Used Date Smoking Tobacco: Never Alcohol Use Standard Drinks/Week Comments Yes 0 (1 standard drink = 0.6 oz pur e alcohol) ON HOLIDAYS Sex and Gender Information Value Date Recorded Sex Assigned at Not on file Gender Identity Not on file Sexual Orientation Not on file documented as of this encounter Plan of Treatment Not on file documented as of this encounter Visit Diagnoses Not on filedocumented in this encounter Care Teams Pl Sql Developer Relationship Specialty Start Date End Date Basim Luo MD PCP - General Family Practice 08/18/13 04/22/18 Shanique Yeh MD PCP - General Cardiology 04/23/18 08/23/18 Samantha Willson MD PCP - Assigned PCP 04/17/18 09/22/18 Samantha Willson MD PCP - General Family Practice 08/24/18 02/20/22 [place] [id number] [address] [id number] PCP - General Internal Medicine 02/21/22 Samantha Willson MD Assigned PCP 04/17/18 08/05/20 Michelle Rocha PA-C [address] [address] [address] Assigned PCP 08/06/20 11/18/20 Samantha Willson MD Assigned PCP 11/19/20 12/28/21 Jett Choi DO [address] [facility] [place] [address] Assigned PCP 12/29/21 03/29/22 [place] [address] [address] [address] Assigned PCP 03/30/22 documented as of this encounter
--- OUTSIDE RECORDS SUMMARY | 2024-01-23 05:56 | XMS_ITS | Continuity of Care Document ---
Author Organization [facility] Address [address] [address] [place] [address] Phone Care Team Providers Care Piano Refinisher Name Role Phone Link Cisco WHEATLEY Unavailable [...] Copied on Encounter Offic/outpt E&m Estab Low-mod [facility], [address] [address], [place], [place], [id number], [place] tel:[phone] [facility] GI Symptoms or Concerns (chief complaint) RUQ painConstipation , unspecified constipation typeEssential (primary) hypertension 9 Link MD Peck. [address] [facility], [facility] [place], [id number] , [place]. tel: [phone] Referring Provider: Referral Self, USE FOR SELF REFERRALS. [facility], [address] [address], [place], [place], [id number], [place] tel:[phone] [facility] RUQ pain Link MD Peck. [address] [facility], [facility] [place], [id number] , [place]. tel: [phone] Offic/outpt E&m Estab Mod-hi 2 [facility], [address] [address], [place], [place], [id number], [place] tel:[phone] [facility] GI Symptoms or Concerns (chief complaint) RUQ painConstipation , unspecified constipation typeEssential (primary) hypertension 9 Wilberto Peck. [address] [facility], [address], [facility] [place], [address] , [place]. tel:[phone] Ref[place]: [place], [address] [place], [address]. tel:[phone] [facility], [address] [address], [place], [place], [address], [place] tel:[phone] [facility] Reflux esophagitisGastr itis determined by endoscopyHiatal herniaColorectal polyp detected on colonoscopyBenig n neoplasm of sigmoid colonChange in bowel habitGastro-esop hageal reflux disease with esophagitisGastr itis, unspecified, without bleeding 7 Gina Delgado. [address] [facility], [place], [place], [id number] , [place]. tel: [phone] Referring Provider: Tammy RENNER M, [address] [place], [address]. tel:[phone] [facility], [address] [address], [place], [place], [address], [place] tel:[phone] [facility] No Information 4 Ata Mann [address] [facility], [facility] [address], [place], [place], [address] , [place]. tel: [phone] [facility], [address] [address], [place], [place], [address], [place] tel:[phone] [facility] No Information 4 Ata Mann [address] [facility], [facility] [address], [place], [place], [address] , [place]. tel: [phone] Offic/outpt E&m Estab Mod-hi 2 [facility], [address] [address], [place], [place], [address], [place] tel:[phone] [facility] colonoscopy follow up (chief complaint) Gastroesophageal RefluxConstipati on Unspecified 1 Wilberto Peck. [address] [facility], [address], [place], [place], [address] , [place]. tel: [phone] [facility], [address] [address], [place], [place], [address], [place] tel:[phone] [facility] Polyp-intes/rect /stom-unc BehPseudopolypos is Of ColonChange In Bowel HabitsPseudopoly posis Of ColonChange In Bowel Habits 1 Link MD Peck. [address] [facility], [address], [place], [place], [address] , [place]. tel:[phone] Family History Family Member Type Diagnosis Age [...] (finding) Payers Payer name Insurance type Covered libertarian ID Montserrat bledsoe(s) [employer] 16 [id number] Social History Type Description Quantity Date Captured [...]
--- OUTSIDE RECORDS SUMMARY | 2024-01-23 05:56 | XMS_ITS | Encounter Summary ---
Author Organization [place] Address [facility] [place] [address] Care Team Providers Care Assembler Unit Name Role Phone Rosa Lino MD Primary Care Provider [phone] Rosa Lino MD Unavailable [phone] Reason for Visit * Reason Comments Medication Refill Encounter Details Date Type Department Care Team (Late st Contact Info) Description 07/16/2022 Refill [facility] [address] [place] [address] [place] [address] [place], [place] [id number] Medication Refill Social History Tobacco Use Types Packs/Day Years [...] on file documented as of this encounter Miscellaneous Notes * Telephone Encounter - Palak Mg RN - 07/17/2022 1:00 PM CST Routing refill request to provider for review/approval because: Drug not active on patient's medication list Amlodipine Labs not current: LDL LDL Cholesterol Calculated Date Value Ref Range Status 03/15/2021 61 <=100 mg/dL Final Comment: Age 0-19 years: Desirable: 0-110 mg/dL Borderline high: 110-129 mg/dL High: >= 130 mg/dL Age 20 years and older: Desirable: <100mg/dL Above desirable: 100-129 mg/dL Borderline high: 130-159 mg/dL High: 160-189 mg/dL Very high: >= 190 mg/dL 12/21/2013 92 0 - 129 mg/dL Final Comment: LDL Cholesterol is the primary guide to therapy: LDL-cholesterol goal in high risk patients is <100 mg/dL and in very high risk patients is <70 mg/dL. BP readings not within target range of <140/90. BP Readings from Last 3 Encounters: 02/21/22 (!) 152/80 03/15/21 136/70 02/06/21 (!) 167/83 Palak Mg RN PAL (Patient Advocate Liason) [facility] ER OR BEAUTY SHOP MANAGER documented in this encounter Plan of Treatment Not on file documented as of this encounter Visit Diagnoses Diagnosis Hypertension goal BP (blood pressure) < 140/90- Primary Unspecified essential hypertension Hyperlipidemia LDL goal <70 Other and unspecified hyperlipidemia documented in this encounter Care Teams Assembler Unit Relationship Specialty [place] [address] [address] [address] PCP - General Internal Medicine 02/21/22 [place] [address] [address] [address] Assigned PCP 03/30/22 documented as of this encounter
--- OUTSIDE RECORDS SUMMARY | 2024-01-23 05:56 | XMS_ITS | Encounter Summary ---
Author Organization [place] Address [facility] [place] [address] Care Team Providers Care Exchange Floor Manager Name Role Phone Basim Rich MD Primary Care Provider [phone] Basim Luo MD Primary Care Provider Un available Shanique Yeh MD Primary Care Provider [phone] Samantha Willson MD Unavailable Unavailable Samantha Willson MD Primary Care Provider Unavailab Samantha Dueñas MD Unavailable Unavailable Michelle Rocha PA-C Unavailable [phone] Samantha Willson MD Unavailable Unavailable Jett Choi DO Unavailable + [phone] Rosa Lino MD Primary Care Provider [phone] Rosa Lino MD Unavailable [phone] Encounter Details Date Type Department Care Team (Late st Contact Info) Description 05/15/2004 Office Visit-[facility] [address] [place] [phone] Unknown, MD Lucila Social History Tobacco Use Types Packs/Day Years Used Date Smoking Tobacco: Never Assessed Sex and Gender Information Value Date Recorded Sex Assigned at Not on file Gender Identity Not on file Sexual Orientation Not on file documented as of this encounter Progress Notes * Unknown, MD Lucila - 05/18/2004 12:41 PM CDT Progress Note Created by: Shanique Yeh M.D. DATE: 05/15/2004 MICAELA STEELE DATE OF : 1935 AGE: [age] years old Referring Physician: ZE NGO Referring Clinic: [facility] CURRENT DIAGNOSES 1. 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 - Hyperlipidemia, 272.4 ALLERGIES Codeine, Hives MEDICATIONS (including any changes made today) 1. Labetolol Hydrochloride 300 mg, 1 p.o. t.i.d. 2. HCTZ 25 mg, 1 p.o. q.d. 3. Crestor 10 mg, 1 p.o. q.d. 4. Excedrin 250 mg-250 mg-65 mg, PRN CHIEF COMPLAINTS Test results returned HISTORY OF PRESENT ILLNESS I had the pleasure of seeing your patient, Micaela Steele, at the [facility] cardiology clinic on May 15, 2004. Mrs. Steele is a very nice 68-year-old woman who I have seen in three separate occasions over the last month because of difficult to control blood pressure. As you know, she has a diagnosis of fibromuscular dysplasia and is status post angioplasty to both of her renal arteries. She is due for a follow-up appointment with the vascular surgeon in approximately two weeks time. When I saw Mrs. Steele a week ago, she was 200mg p.o. t.i.d. of labetalol. She continued to haveelevated blood pressures with systolic blood pressures in the 190 range and diastolic blood pressures between 100-110mmHg. I recommended hospitalization when I last saw, however [facility] I ended up increasing her labetalol to 300mg p.o. t.i.d. I alsogave her HCTZ to be taken if her systolic blood pressures were greater than 170mmHg. With the increase in the labetalol dosing, her blood pressure has improved immensely. Her systolic blood pressuresrange between 138-172mmHg. The diastolic have been consistently in the high 80s and low 90s. With these better blood pressures, she feels very tired and complains of dizziness. What she has been doing is lying down after she takes her medication. She has been able to sleep through the night now. She also denies headaches. She occasionally will get tingling in her right arm but she feels all of these symptoms are improved. Her biggest complaint is that she feels tired all of the time. She feels the worst around lunch time. As a compromise, she would like to take 300mg of labetalol in the morning, 200mg at noon and 300mg in the evening. She is also attempting to not add any salt to any of herfoods. She does admit to being under a considerable amount of stress because of the blood pressure that has been difficult to control. She denies any chest pain. She has not had any recent shortness of breath. She denies any paroxysmal nocturnal dyspnea, orthopnea or pedal edema. Her weight remainsstable at 143 pounds. PAST HISTORY Past Medical Illnesses: hypertension-uncontrolled, hyperlipidemia [...] with ; Place of - [facility]; Spouse's Occupation - retired; REVIEW OF SYSTEMS GENERAL decreased exercise tolerance, decreased energy INTEGUMENTARY denies any change in hair or nails, rashes, or skin lesions. EYES wears eye glasses/contact lenses, blurred vision EARS, NOSE, THROAT, MOUTH lightheadedness after patient takes her Labetolol RESPIRATORY denies dyspnea, snoring, cough, wheezing or hemoptysis. CARDIOVASCULAR denies chest pain and palpitations ABDOMINAL history of GERD and nausea GENITOURINARY-FEMALE mood swings, nocturia MUSCULOSKELETAL chronic back pain, joint pain NEUROLOGICAL headaches, numbness, sometimes PSYCHIATRIC stress, sleep disturbance ENDOCRINE fatigue, hyperlipidemia HEMATOLOGICAL/IMMUNOLOGIC easy bruising, medication allergies PHYSICAL EXAMINATION VITAL SIGNS: Blood Pressure: 160/80 Sitting, Left arm, large cuff Pulse- 68.00/min. Weight- 143.00 lbs. Height- 62.50 Temperature- .00 CONSTITUTIONAL cooperative, [...] time, person and place. MEDICATIONS UPDATED TODAY: Excedrin 250 mg-250 mg-65 mg, PRN IMPRESSIONS/PLAN Micaela Steele is a 68-year-old woman with refractory hypertension. I feel that a large component of her hypertension is secondary to fibromuscular dysplasia. Reading the literature, 25-30% of people have recurrent problems even after an angioplasty within the first year post intervention. In terms of medical treatments for this, the data is not out there. There is a suggestion of potential benefit with beta-blockade, calcium channel blockers and diuretics. Her blood pressure seems to be responding to these intermediary type doses of labetalol. I would like her to consistently have systolic blood pressures between 150-160mmHg. Once we are able to achieve this, we could try to get her in a more normotensive range. The problem is her body has gotten use to very high blood pressures and now when her blood pressure falls into a normal range, she feels very light-headed and exhausted. I will plan to see her back in my clinic in [place] in three weeks time. I told her to call every week and give me an update as to what her blood pressures are doing. I advised her to check her blood pressure at different times but to do so at least three times a day. That way, we can make motivations inher labetalol dosing as required. I guess what I would be inclined to do is get her up to 300mg p.o. t.i.d. of the labetalol and once we had consistent blood pressure readings, then add the HCTZ on ascheduled basis. I did go over things to look out and told her if she had persistent headache, visual changes, chest discomfort, acute shortness of breath that she should go to the emergency room andbe evaluated. She seems to understand this. Her daughter has accompanied her on all of her clinic visits and calls her mother frequently to see how she is doing. I look forward to seeing Mrs. Steele in three weeks time. Hopefully her blood pressure readings will continue to improve and they will be more consistent. It was my pleasure to participate in the care of this very challenging patient. TODAYS ORDERS 1. Return Visit 3 weeks Shanique Yeh M.D. documented in this encounter Plan of Treatment Not on file documented as of this encounter Visit Diagnoses Not on filedocumented in this encounter Care Teams Exchange Floor Manager Relationship Specialty Start Date End Date Basim Rich MD PCP - General Family Practice 01/29/13 08/17/13 Basim Luo MD PCP - General Family Practice 08/18/13 04/22/18 Shanique Yeh MD PCP - General Cardiology 04/23/18 08/23/18 Samantha Willson MD PCP - Assigned PCP 04/17/18 09/22/18 Samantha Willson MD PCP - General Family Practice 08/24/18 02/20/22 [place] [id number] [place] [address] PCP - General Internal Medicine 02/21/22 Samantha Willson MD Assigned PCP 04/17/18 08/05/20 Michelle Rocha PA-C [id number] [address] [address] Assigned PCP 08/06/20 11/18/20 Samantha Willson MD Assigned PCP 11/19/20 12/28/21 Jett Choi DO [address] [facility] [place] [id number] Assigned PCP 12/29/21 03/29/22 [place] [id number] [address] [id number] Assigned PCP 03/30/22 documented as of this encounter
--- OUTSIDE RECORDS SUMMARY | 2024-01-23 05:56 | XMS_ITS | Clinical Summary ---
Author Organization [place] Address [address] [place] [address] [place] [address] Care Team Providers Care Ice Seller Name Role Phone Rosa Lino MD Primary Care Provider [phone] Rosa Lino MD Unavailable [phone] Allergies Active Allergy Reactions Criticality Noted Date [...] 23 valent 05/30/1998 Td (Adult), Adsorbed 06/20/1997 Family History Medical History Relation Comments Cerebrovascular Disease Brother Hemorrha gic. . Family History Negative Father C.A.D. Mother Diabetes Mother Found in AM 72 Relation Status Comments Brother Father Mother Social History Tobacco Use Types Packs/Day [...] Comments Blood Pressure 148/98 08/07/2022 11:13 AM COMFORT ADVISOR Pulse 54 08/07/2022 11:13 AM COMFORT ADVISOR Temperature 36.3 ??C (97.3 ??F) 02/21/2022 1:26 PM CD T Respiratory Rate 16 02/21/2022 1:26 PM CDT Oxygen Saturation 98% 08/07/2022 11:13 AM COMFORT ADVISOR Inhaled Oxygen Concentration - - Weight 61.7 kg (136 lb) 02/21/2022 1:26 PM CDT Height 154.9 cm (5' 1) 02/21/2022 1:26 PM CDT Body Mass Index 25.7 02/21/2022 1:26 PM CDT Plan of Treatment Health Maintenance Due Date Last Done Comments DEXA 1935 RSV VACCINE ( & 60+) (1 - 1-dose 60+ series) 1995 ZOSTER IMMUNIZATION (2 of 2) 05/10/2021 03/15/2021 (Declined) LIPID 03/15/2022 03/15/2021, 06/09/2013, 01/08/2006 ANNUAL REVIEW OF HM ORDERS 02/21/2023 02/21/2022, FALL RISK ASSESSMENT 02/21/2023 02/21/2022, 11/09/2020, 05/11/2018 MEDICARE ANNUAL WELLNESS VISIT 02/21/2023 02/21/2022 COVID-19 Vaccine ( season) 2023 08/23/2021, 08/01/2021 PHQ-2 (once per calendar year) 2023 12/19/2021, 03/15/2021, 03/15/2021 (Not Needed), Additional history exists INFLUENZA VACCINE (#1) 2024 2, 05/29/2010, 05/11/2008, Additional history exists ADVANCE CARE PLANNING 04/22/2027 04/22/2022 , 11/09/2020, 04/24/2018 DTAP/TDAP/TD IMMUNIZATION (2 - Td or Tdap) 03/15/2031 03/15/2021 (Declined), 06/20/1997 Pneumococcal Vaccine: 65+ Years Addressed 03/15/2021 (Declined), 05/30/1998 Overridden with the intention of not completing the topic HPV IMMUNIZATION Aged Out No longer e ligible based on patient's age to complete this topic IPV IMMUNIZATION Aged Out No longer e ligible based on patient's age to complete this topic MENINGITIS IMMUNIZATION Aged Out No l onger eligible based on patient's age to complete this topic RSV MONOCLONAL ANTIBODY Aged Out No l onger eligible based on patient's age to complete this topic Procedures Procedure Name Priority Date/Time Associated Diagnosis [...] Willson MD LAB - BLOOD ORDERABL ES LABORATORY [facility] [address] (1st floor, no room number) [place] [address], [facility] [phone] from Last 3 Months or Most Recently Relevant to Health Maintenance Advance Directives For more information, please contact: [phone] * Full Code (Latest Code Status on [...] 6:09 PM 12/20/2013 6:35 PM Care Teams Ice Seller Relationship Specialty [place] [id number] [address] [id number] PCP - General Internal Medicine 02/21/22 [place] [address] [address] [address] Assigned PCP 03/30/22
--- OUTSIDE RECORDS SUMMARY | 2024-01-23 05:56 | XMS_ITS | Encounter Summary ---
Author Organization [place] Address [facility] [place] [address] Care Team Providers Care Junior Database Administrator Name Role Phone Basim Rich MD Primary Care Provider [phone] Basim Luo MD Primary Care Provider Un available Shanique Yeh MD Primary Care Provider [phone] Samantha Willson MD Unavailable Unavailable Samantha Willson MD Primary Care Provider Unavailab Samantha Dueñas MD Unavailable Unavailable Michelle Rocha PA-C Unavailable [phone] Samantha Willson MD Unavailable Unavailable Jett Choi DO Unavailable + [phone] Rosa Lino MD Primary Care Provider [phone] Rosa Lino MD Unavailable [phone] Encounter Details Date Type Department Care Team (Late st Contact Info) Description 04/20/2004 Office Visit-[facility] [address] [place] [phone] Unknown, MD Lucila Social History Tobacco Use Types Packs/Day Years Used Date Smoking Tobacco: Never Assessed Sex and Gender Information Value Date Recorded Sex Assigned at Not on file Gender Identity Not on file Sexual Orientation Not on file documented as of this encounter Progress Notes * Unknown, MD Lucila - 04/25/2004 1:48 PM CDT Progress Note Created by: Shanique Yeh M.D. DATE: 04/20/2004 MICAELA STEELE DATE OF : 1935 AGE: [age] years old Referring Physician: ZE NGO Referring Clinic: [facility] CURRENT DIAGNOSES 1. - Hyperlipidemia, 272.4 2. 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 Hyzaar 25 mg-100 mg, 1 p.o. q.d. 2. Atenolol 25 mg, 1 p.o. b.i.d. 3. Crestor 10 mg, every other day 4. Labetolol Hydrochloride 200 mg, 1 p.o. b.i.d. CHIEF COMPLAINTS Hypertension HISTORY OF PRESENT ILLNESS I had the pleasure of seeing your patient, Micaela Steele, at the [facility] on April 20, 2004. Thank you for asking me to see this very interesting patient in consultation. As you know, she is a 68-year-old woman whose cardiac risk factors include age, postmenopausal state, hypertension and hyperlipidemia. The patient has long-standing hypertension. She had been on Zestril and atenolol for many years. In the last six months, she has had a great deal of difficulty with blood pressure control. Appropriately, you did a workup looking for secondary causes of hypertension. She wasfound to have bilateral renal artery stenosis. She is status post angioplasty of both of her renal a rteries. She was diagnosed with fibromuscular dysplasia. She states that her blood pressure had improved for about two days after the intervention. Now she consistently has systolic blood pressures in the 180s to 200 range. She is complaining of headaches and visual changes. She is scheduled for anexamination with an line worker to evaluate for hypertensive retinopathy. The patient has been tried on multiple antihypertensive medications with little success in terms of lowering her blood pressure. She had been on Avalide. This medication was discontinued as it did not help her. Catapres patches caused her muscular pain. She is now taking Clonidine on a p.r.n. basis. She takes atenolol 25 mg p.o., b.i.d. and Hyzaar 25 mg/100 mg 1 tablet p.o., q. day. She tells me that she had been on Norvasc 10 mg p.o., q. day in the past. This did little to help her blood pressure. The patient also was recently started on Cardizem at a dose of 180 mg p.o., q. a.m. She has been on hormone replacement therapy for many years. She is status post hysterectomy for fibroids. The patient is accompanied by her daughter. She tells me that her mother had a stress test a couple of years ago and that this was normal. Her last fasting lipid panel shows a total cholesterol of 295, triglycerides 122, HDL 88and LDL of 1983. The patient is on Crestor. She was having some myalgias and her dose was decreasedto three times a week. The patient does have some difficulties with palpitations. She also complains of lightheadedness, particularly with position change. She denies any difficulties with chest pressure. She has had no paroxysmal nocturnal dyspnea, orthopnea or pedal edema. A TSH was checked and was found to be in normal range at 1.05. Her sodium was normal at 141 and her potassium was low normal at 3.6. PAST HISTORY Past Medical Illnesses: hypertension-uncontrolled, hyperlipidemia [...] - lives with ; Place of - [facility]; Spouse's Occupation - retired; REVIEW OF SYSTEMS GENERAL weight gain INTEGUMENTARY denies any change in hair or nails, rashes, or skin lesions. EYES wears eye glasses/contact lenses EARS, NOSE, THROAT, MOUTH vertigo unrelated to position RESPIRATORY dyspnea with exertion CARDIOVASCULAR chest discomfort, occ, palpitations, dizziness, edema ABDOMINAL history of GERD GENITOURINARY-FEMALE mood swings, nocturia MUSCULOSKELETAL chronic back pain NEUROLOGICAL headaches, numbness, sometimes PSYCHIATRIC stress, sleep disturbance ENDOCRINE fatigue, hyperlipidemia HEMATOLOGICAL/IMMUNOLOGIC easy bruising, medication allergies PHYSICAL EXAMINATION VITAL SIGNS: Blood Pressure: 188/108 Sitting, Left arm, regular cuff Pulse- 64.00/min. Weight- 140.00 lbs. Height- 62.00 Temperature- .00 CONSTITUTIONAL cooperative, [...] MEDICATIONS UPDATED TODAY: Hyzaar 25 mg-100 mg, 1 p.o. q.d. Atenolol 25 mg, 1 p.o. b.i.d. Clonidine 0.1 mg, PRN Estrace 2 mg, 1 p.o. q.d. Crestor 10 mg, every other day Cardizem CD 180 mg, 1 p.o. q.d. Labetolol Hydrochloride 200 mg, 1 p.o. b.i.d., #60 IMPRESSIONS/PLAN Micaela Steele is a 68-year-old woman with refractory hypertension. The patient has normal kidney function. On last check, her creatinine was within normal limits, however, she has been having headaches and visual changes. Her blood pressure has been very difficult to control. She was diagnosed with fibromuscular dysplasia and is status post SECURITIES AND REAL ESTATE DIRECTOR of both of her renal arteries. Despite this intervention, the patient continues to have elevated blood pressures. I recommended that the patient continue her atenolol at 25 mg p.o, b.i.d. I also recommended that she stay on Hyzaar. I discontinued her Cardizem and I started her on labetalol at a dose of 200 mg p.o., b.i.d. I will plan to titrate up her labetalol as tolerated with the hope of removing the atenolol and Hyzaar. Maximum doses of labetalol are 2400 mg a day. I told Mrs. Steele to take her blood pressure at various times of the day. I told her to give the clinic a call on Friday to report what her blood pressures had been doing. At that point, her labetalol will be titrated up as tolerated. I ordered a transthoracic echocardiogram to evaluate for any evidence of end organ damage. I also ordered it to assess for other secondary causes of hypertension, mainly coarctation. In terms of the patient's fasting lipid profile, the HDL looks excellent and is likely cardioprotective. The triglycerides are less than 150. Given her vascular disease, I would like to see her LDL less than 183. I will plan to check a fasting lipid panel prior to her return visit in one week's time. I told her to discontinue her hormone replacement therapy as this could be contributing to some of her hypertension. TODAYS ORDERS 1. 2D, color flow, doppler Today 2. Return Visit 1 week 3. Lipid profile/ALT 1 week prior to next clinic visit Shanique Yeh M.D. documented in this encounter Plan of Treatment Not on file documented as of this encounter Visit Diagnoses Not on filedocumented in this encounter Care Teams Junior Database Administrator Relationship Specialty Start Date End Date Basim Rich MD PCP - General Family Practice 01/29/13 08/17/13 Basim Luo MD PCP - General Family Practice 08/18/13 04/22/18 Shanique Yeh MD PCP - General Cardiology 04/23/18 08/23/18 Samantha Willson MD PCP - Assigned PCP 04/17/18 09/22/18 Samantha Willson MD PCP - General Family Practice 08/24/18 02/20/22 [place] [address] [address], [place] [address] PCP - General Internal Medicine 02/21/22 Samantha Willson MD Assigned PCP 04/17/18 08/05/20 Michelle Rocha PA-C [id number] [address] [address] Assigned PCP 08/06/20 11/18/20 Samantha Willson MD Assigned PCP 11/19/20 12/28/21 Jett Choi DO 9 [facility] [place] [id number] Assigned PCP 12/29/21 03/29/22 [place] [id number] [address] [address] Assigned PCP 03/30/22 documented as of this encounter
== END 2024-01-21 09:59 | disposition home or self-care (01) ==
LOC: NFLDREF 01-23 05:53
PROVIDERS: PCP Family Medicine; Referring Provider Family Medicine; Visit Provider Family Medicine
DX: I10 Essential (primary) hypertension (principal); E78.5 Hyperlipidemia, unspecified; E55.9 Vitamin D deficiency, unspecified
CPT/HCPCS: 80053; 80061; 82306

== ENCOUNTER 2024-10-25 10:30 | Outpatient (CLI) | payer MEDICARE, SELFPAY | END 2024-10-25 10:31 | disposition home or self-care (01) | LOC: NFLDREF 10-29 06:22 | PROVIDERS: PCP Family Medicine; Referring Provider Family Medicine; Visit Provider Family Medicine | DX: I10 Essential (primary) hypertension (principal); R53.83 Other fatigue; E78.5 Hyperlipidemia, unspecified | CPT/HCPCS: 80053; 80061; 82607 ==

== ENCOUNTER 2025-05-02 10:51 | Outpatient (CLI) | payer MEDICARE, SELFPAY | END 2025-05-02 10:52 | disposition home or self-care (01) | LOC: NFLDREF 05-03 16:33 | PROVIDERS: PCP Family Medicine; Referring Provider Family Medicine; Visit Provider Family Medicine | DX: I10 Essential (primary) hypertension (principal); E78.5 Hyperlipidemia, unspecified; R53.83 Other fatigue; E55.9 Vitamin D deficiency, unspecified; E53.8 Deficiency of other specified B group vitamins | CPT/HCPCS: 80053; 80061; 82306; 82607; 84443 ==